=== PATIENT | female | born 1955 | race Caucasian/White ===

== ENCOUNTER 2024-08-06 14:30 | Outpatient (AMB) | payer OTHER, SELFPAY ==
--- NOTE | 2024-08-06 14:43 | MHC.PC.OV ---
Vital Signs 08/06/24 14:51 Height 5 ft 3 in Weight 168 lb 2 oz BMI 29.8 BP 140/70 H Blood Pressure Location Rt brachial Position Sitting Respiration 14 Pulse 118 H Pulse Source Pulse Oximeter Temp 98.4 F Temp Source Oral Pulse Oximetry (%) 94 Oxygen Delivery Method Room Air Intake Visit Reasons: Est. 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 Required: No Is last menstrual period known: No Post menopausal: Yes Patient : No Allergies levequin Adverse Reaction (Intermediate, Uncoded 08/06/24 14:45) Joint Pain Medication List - Last Reconciled 08/06/24 by Karen Grayson MD acyclovir 5% 1 appl topical 6XD ascorbic acid (vitamin C) 500 mg PO Q6H atorvastatin 40 mg PO DAILY calcium carbonate 500 mg PO DAILY cetirizine (Zyrtec) 10 mg PO DAILY PRN cholecalciferol (vitamin D3) (Vitamin D3) 30 mcg PO DAILY ezetimibe 10 mg PO DAILY iron-vitamin B complex tabs PO methenamine-sodium salicylate 162-162.5 mg (AZO Urinary Tract Defense) tabs PO valacyclovir 1,000 mg PO Tobacco use date assessed: 08/06/24 Fall risk assessment: No Falls in past year Last assessed Fall Risk: 08/06/24 Dental Screening Dental Screen Date: 08/06/24 Did you have a dental visit in the last 12 months?: Yes Did you have a dental problem in the last 6 months where you did not have access to dental care?: No Was dental information given to patient?: No HPI HPI Comments History of Present Illness Details The patient is a 69 year old female with a past medical history of [place] Granulomatosis, anxiety, osteopenia presenting to establish care CV: Was following with Dr Wen. Cardiac testing included Echocardiogram, holter reassuring. BP is normal-120s/70-80. No chest pain, exertional dyspnea. Was on fosamax for osteoporosis. Improved to osteopenia. She has had some loss in bone density however from DXA in 2021 and 2023. GCA: Follows every six months Reza Ortiz. Has previously been on prednisone, rituxan. In remission. Follows with labs, symptoms. See scanned history In 2019 evaluated in hospital for ?CVA. 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 Yearly mammo UTD Due for colonoscopy 2027. Last 2018 Td 2020 ROS CONSTITUTIONAL: Denies weight loss, fever and chills. HEENT: Denies changes in vision and hearing. RESPIRATORY: Denies SOB and cough. CV: Denies palpitations and CP GI: Denies abdominal pain, nausea, vomiting and diarrhea. : Denies dysuria and urinary frequency. MSK: Denies new myalgia and joint pain. SKIN: Denies rash and pruritus. NEUROLOGICAL: Denies headache PSYCHIATRIC: Denies recent changes in mood. PHYSICAL EXAM: GENERAL: Alert and oriented x 3. NAD EYES: EOMI. Anicteric. HENT: Moist mucous membranes. Thyroid full, right upper nodule LUNGS: Clear to auscultation bilaterally. CARDIOVASCULAR: Regular rate and rhythm. No murmur. No JVD. ABDOMEN: Soft, non-tender +bs EXTREMITIES: No edema. Non-tender. SKIN: No rashes or lesions. Warm. NEUROLOGIC: No focal neurological deficits. CN II-XII grossly intact PSYCHIATRIC: Cooperative. Appropriate mood and affect [facility] Medical History Sinusitis High cholesterol Orbital granulomatosis with polyangiitis (GPA) Osteopenia Anxiety Surgical History H/O hand surgery H/O section Family History Father High blood cholesterol Cardiovascular disease Mother Breast cancer Paternal Grandmother Brain cancer Social History Housing: House Patient Tobacco Use Status: Never used Tobacco e-Cigarette/Vaping Use: Never Used service: No Current occupational status: retired Current occupational exposures/hazards: No Cognitive needs: No Hearing needs: No Vision needs: Yes Questionnaire PHQ-9 Over the last 2 weeks, how often have you been bothered by any of the following problems? 1. Little interest or pleasure in doing things: not at all 2. Feeling down, depressed, or hopeless: not at all 3. Trouble falling or staying asleep, or sleeping too much: not at all 4. Feeling tired or having little energy: not at all 5. Poor appetite or overeating: not at all 6. Feeling bad about yourself - or that you are a failure or have let yourself or your family down: not at all 7. Trouble concentrating on things, such as reading the newspaper or watching television: not at all 8. Moving or speaking so slowly that other people could have noticed. Or the opposite - being so fidgety or restless that you have been moving around a lot more than usual: not at all 9. Thoughts that you would be better off or of hurting yourself in some way: not at all Total score: 0 Depression Screening Interpretation: Negative Depression Screening Done: Yes 32563 - PHQ-9 Billing: Yes Source: Developed by Drs. Shadi Taylor, Eleanor Wall, Chase Edge and colleagues, with an educational raudel from [employer]. Thrive Questionnaire Date Thrive assessed: 06/26/24 I am a: Patient What is your living situation today?: I have a steady place to live Within the past 12 months, did the food you bought not last and you didn't have the money to get more?: Never true Within the past 12 months, did you worry whether your food would run out before you got money to buy more?: Never true Do you have trouble paying for medicines?: No Do you have trouble getting transportation to medical appointments?: No Do you have trouble paying your heating and electricity bill?: No Do you have trouble taking care of your child, family member or friend?: No Do you have trouble with day-to-day activities such as bathing, preparing meals, shopping, managing finances, etc.?: No Are you currently unemployed and looking for a job?: No Are you interested in more education?: No Please select the resources that you would like help with: None Currently or been in a relationship where the following occur: No concerns reported THRIVE Score: 0 AUDIT C Alcohol Use Questionnaire (AUDIT-C) 1. How often do you have a drink containing alcohol?: 2-3 times a week 2. How many drinks containing alcohol do you have on a typical day when you are drinking?: 1 or 2 3. How often do you have six or more drinks on one occasion?: Never Total Score: 3 Score Reviewed/Action Taken: Yes MYRON-7 AMB Questionnaire MYRON-7 Date MYRON - 7 assessed: 08/06/24 Feeling nervous, anxious, or on edge: 0 = Not at all Not being able to stop or control worryin = Not at all Worrying too much about different things: 0 = Not at all Trouble relaxin = Not at all Being so restless that it is hard to sit still: 0 = Not at all Becoming easily annoyed or irritable: 0 = Not at all Feeling afraid as if something awful might happen: 0 = Not at all Total MYRON-7 score (0-4 normal; 5-9 mild; 10-14 moderate; 15-21 severe): 0 Source: Developed by Drs. Shadi Taylro, Eleanor Wall, Chase Edge and colleagues, with an educational raudel from [employer]. MYRON-7 Assessment Billing MYRON-7 Assessment Tool: MYRON-7 Assessment 47587 Physical exam (Primary Care) Vital Signs: Last Vital Signs Temp 98.4 F 08/06/24 14:51 Pulse 118 H 08/06/24 14:51 Resp 14 08/06/24 14:51 BP 140/70 H 08/06/24 14:51 Pulse Ox 94 08/06/24 14:51 Oxygen Delivery Method Room Air 08/06/24 14:51 BMI result Body Mass Index 29.8 Tobacco/Smoking Status: Tobacco use Status Tobacco use date assessed 08/06/24 08/06/24 14:58 Patient Tobacco Use Status Never used Tobacco 08/06/24 14:58 e-Cigarette/Vaping Use Never Used 08/06/24 14:58 PHQ-9: PHQ-9 Score PHQ-9: Total score 0 08/06/24 15:03 Depression Screening Interpretation: Negative Thrive Assessment: Date of Thrive Assessment Date Thrive assessed 06/26/24 08/06/24 14:58 Currently or been in a relationship where the following occur: No concerns reported Coding Level of Care Code New Pt Level 5 (89152) Diagnoses Establishing care with new doctor, encounter for Z76.89 Orbital granulomatosis with polyangiitis (GPA) M31.30 Additional Codes MYRON-7 Assessment Billing - MYRON-7 Assessment Tool: MYRON-7 Assessment 60055 ([id number]) PHQ-9 - 39814 - PHQ-9 Billing: Yes ([id number]) Time Spent (min) 70 Assessment & Plan Assessment & Plan (1) Establishing care with new doctor, encounter for: Code(s): Z76.89 - Persons encountering health services in other specified circumstances Category: Medical Plan: 69 year old female presenting to establish care. Past medical, surgical, family and social history reviewed. Medications reconciled Chart updated (2) Orbital granulomatosis with polyangiitis (GPA): Code(s): M31.30 - Cely's granulomatosis without renal involvement Category: Medical Plan: stable Orders: Orders Complete Blood Count Auto Diff 08/08/24 E78.00 - Pure hypercholesterolemia, unspecified, F41.9 - Anxiety disorder, unspecified, M31.30 - Cely's granulomatosis without renal involvement, M85.80 - Other specified disorders of bone density and structure, unspecified site, Z13.0 - Encounter for screening for diseases of the blood and blood-forming organs and certain disorders involving the immune mechanism, Z13.228 - Encounter for screening for other metabolic disorders, Z76.89 - Persons encountering health services in other specified circumstances Lipid Panel 08/08/24 E78.00 - Pure hypercholesterolemia, unspecified, F41.9 - Anxiety disorder, unspecified, M31.30 - Cely's granulomatosis without renal involvement, M85.80 - Other specified disorders of bone density and structure, unspecified site, Z13.0 - Encounter for screening for diseases of the blood and blood-forming organs and certain disorders involving the immune mechanism, Z13.228 - Encounter for screening for other metabolic disorders, Z76.89 - Persons encountering health services in other specified circumstances Hemoglobin A1c 08/08/24 E78.00 - Pure hypercholesterolemia, unspecified, F41.9 - Anxiety disorder, unspecified, M31.30 - Cely's granulomatosis without renal involvement, M85.80 - Other specified disorders of bone density and structure, unspecified site, Z13.0 - Encounter for screening for diseases of the blood and blood-forming organs and certain disorders involving the immune mechanism, Z13.228 - Encounter for screening for other metabolic disorders, Z76.89 - Persons encountering health services in other specified circumstances Comprehensive Met. Panel 08/08/24 E78.00 - Pure hypercholesterolemia, unspecified, F41.9 - Anxiety disorder, unspecified, M31.30 - Cely's granulomatosis without renal involvement, M85.80 - Other specified disorders of bone density and structure, unspecified site, Z13.0 - Encounter for screening for diseases of the blood and blood-forming organs and certain disorders involving the immune mechanism, Z13.228 - Encounter for screening for other metabolic disorders, Z76.89 - Persons encountering health services in other specified circumstances TSH reflex Free T4 08/08/24 E78.00 - Pure hypercholesterolemia, unspecified, F41.9 - Anxiety disorder, unspecified, M31.30 - Cely's granulomatosis without renal involvement, M85.80 - Other specified disorders of bone density and structure, unspecified site, Z13.0 - Encounter for screening for diseases of the blood and blood-forming organs and certain disorders involving the immune mechanism, Z13.228 - Encounter for screening for other metabolic disorders, Z76.89 - Persons encountering health services in other specified circumstances Vitamin D 25-OH (D2 and D3) 08/08/24 E78.00 - Pure hypercholesterolemia, unspecified, F41.9 - Anxiety disorder, unspecified, M31.30 - Cely's granulomatosis without renal involvement, M85.80 - Other specified disorders of bone density and structure, unspecified site, Z13.0 - Encounter for screening for diseases of the blood and blood-forming organs and certain disorders involving the immune mechanism, Z13.228 - Encounter for screening for other metabolic disorders, Z76.89 - Persons encountering health services in other specified circumstances Referrals Endocrinology Referral M81.0 - Age-related osteoporosis without current pathological fracture
[2024-08-06 14:51] VITALS: BP 140/70; PULSE 118; RESP 14; TEMP 36.9; O2SAT 94; BMI 29.8
--- OUTSIDE RECORDS SUMMARY | 2024-08-06 16:35 | XMS_ITS | Continuity of Care Document ---
Author Organization [facility] Address [address] [place] [id number] [facility] Name Relationship Address Phone DOROTHY SINHA Personal Relationship Unknown Un available ERNESTINE, CARA spouse Unknown Unavailable ERNESTINE, DOROTHY Personal Relationship Unknown Un available ERNESTINE, DOROTHY Personal Relationship Unknown Un available ERNESTINE, CARA spouse Unknown Unavailable ERNESTINE, DOROTHY Personal Relationship Unknown Un available Care Team Providers Care Weight Loss Centre Manager Name Role Phone Pranav Bryant DO Primary Care Physician Encounter [facility] Date(s): 06/12/24 - 07/12/24 [facility] [address] [place] [id number] Attending Physician: Vivi Gomez Admitting Physician: Vivi Gomez Referring Physician: Vivi Gomez Encounter Type: Triage Allergies, Adverse Reactions, Alerts Substance Criticality Severity Reaction Reaction Severity Status Levaquin bodyaches and GI upset Active Immunizations Given and Recorded Vaccine Date Status Refusal Reason FluLaval (oldterm) 1 02/17/10 Given Pneumococcal Vaccine (oldterm) 09/21/08 Given 1Admin Note: CHARTED BY HISTORY CDC INFO GIVEN TO PATIENT Medications Ascorbic Acid = 1,000 mg, By Mouth, Daily, 0 Refills, Maintenance, 01/11/20 4:55:00 PM EDT Start Date: 01/11/20 Status: Ordered Repeat number: 1 atorvastatin 40 mg oral tablet 1 tablet = 40 mg, By Mouth, Daily, # 30 tablet, 5 Refills, Maintenance, 06/07/23 1:40:00 PM EST, Tablet, Partial fill upon patient request if the prescription is for a schedule II opioid drug. Start Date: 06/07/23 Status: Ordered Quantity: 30.0 Unit: tablet Repeat number: 1 Azo cranberry 0 Refills, Maintenance, 06/07/23 1:41:00 PM EST, Partial fill upon patient request if the prescription is for a schedule II opioid drug. Start Date: 06/07/23 Status: Ordered Repeat number: 1 Calcium 500+D 2 times a day, 0 Refills, Maintenance, 06/07/23 1:41:00 PM EST, Partial fill upon patient request if the prescription is for a schedule II opioid drug. Start Date: 06/07/23 Status: Ordered Repeat number: 1 Cholecalciferol = 400 International_Units, By Mouth, Daily, 0 Refills, Maintenance, 01/11/20 4:52:00 PM EDT Start Date: 01/11/20 Status: Ordered Repeat number: 1 ezetimibe 10 mg oral tablet 1 tablet = 10 mg, By Mouth, Daily, # 30 tablet, 0 Refills, Maintenance, 06/07/23 1:40:00 PM EST, Tablet, Partial fill upon patient request if the prescription is for a schedule II opioid drug. Start Date: 06/07/23 Status: Ordered Quantity: 30.0 Unit: tablet Repeat number: 1 Misc Rx Refills 0, Maintenance, rituxamib infusion q 14 months, 06/07/23 1:41:00 PM EST, Supply Start Date: 06/07/23 Status: Ordered Repeat number: 1 Oyster Shell 500 (1250 mg calcium carbonate) oral tablet 1 tablet = 1,250 mg, By Mouth, 3 times a day, 0 Refills, Maintenance, 06/12/24 2:37:00 PM EST, Partial fill upon patient request if the prescription is for a schedule II opioid drug. Start Date: 06/12/24 Status: Ordered Repeat number: 1 Vit B Complex Tablet 1 tablet, By Mouth, Daily, 0 Refills, Maintenance, 01/11/20 4:55:00 PM EDT, Tablet Start Date: 01/11/20 Status: Ordered Repeat number: 1 ZyrTEC 10 mg oral tablet 1 tablet = 10 mg, By Mouth, Daily, 0 Refills, Maintenance, 01/11/20 4:54:00 PM EDT Start Date: 01/11/20 Status: Ordered Repeat number: 1 Problem List Condition Confirmation Course Effective Dates Status Health St atus Informant Acute bronchitis Confirmed Active Dyslipidemia Confirmed Active Paroxysmal SVT (supraventricular tachycardia) Confirmed Active Pulmonary embolism-L DVT- IVC filter removed Confirmed Active Cely's -dc imuran 09/01/2011-rituxan 05/10 Confirmed Active Social History Social History Type Response Smoking Status Never (less than 100 in lifetime) entered on: 11/20/21 Sex Sex Representation Female (finding) Patient Care team information Care Team Personnel Name: Pranav Bryant DO Position: Reference Physician Member Role: PCP Address: [address] [place] [address] Telecom: Name: Jerri Lafleur RN Position: Shahram FUENTES RN Member Role: Primary Care Nurse Care Team Related Persons Name: CARA SINHA Insurance Providers Guarantor name: DOROTHY SINHA Health Plan Information #: 1 Payer: MEDICARE PART B OUTPT Member Number: NA Policy Number: NA Group Number: NA Health Plan Information #: 2 Payer: [facility] Member Number: NA Policy Number: NA Group Number: NA
--- OUTSIDE RECORDS SUMMARY | 2024-08-06 16:35 | XMS_ITS | Clinical Summary ---
Author Organization [address] Address [address] [place] [phone] Phone Care Team Providers Care Maintenance Of Way Superintendent Name Role Phone Ary Hackett MD Primary Care Provider [phone] Allergies Active Allergy Reactions Criticality Noted Date Comments Levofloxacin 08/05/2008 Other Reaction(s): Myalgia and Joint Pain Medications methenamine-sod ium salicylate 162-162.5 mg tablet Take 2 tablets by mouth 1 (one) time each day. Active FA/niacinamide/ cupric ox/Zn ox (NICOTINAMIDE ZCF ORAL) Take 2 tablets by mouth 1 (one) time each day. Nicotinamide 500mg + resveratrol 100mg Active RITUXIMAB IV Infuse 1,000 mg into a venous catheter. Every 14 months infusion Active vitamin B complex vit C no.3 (B COMPLEX PLUS VITAMIN C ORAL) None Entered Active acyclovir (ZOVIRAX) 5 % ointment Every 3 hours while awake. 2 Active ascorbic acid (VITAMIN C) 1,000 mg tablet 1 tablet (1,000 mg total) 1 (one) time each day. AT DINNER Active atorvastatin (LIPITOR) 40 mg tablet Take 1 tablet (40 mg total) by mouth 1 (one) time each day. 4 Active calcium carbonate (OS-KAUR) 1,250 mg (500 mg elemental calcium) tablet Take 1 tablet (1,250 mg total) by mouth 1 (one) time each day. 4 Active cetirizine (ZyrTEC) 10 mg tablet Take 1 tablet (10 mg total) by mouth 1 (one) time each day. Active cholecalciferol (VITAMIN D-3) 10 mcg (400 unit) tablet Take 3 tablets (1,200 Units total) by mouth 1 (one) time each day. 4 Active ezetimibe (ZETIA) 10 mg tablet Take 1 tablet (10 mg total) by mouth 1 (one) time each day. 4 Active valACYclovir (VALTREX) 1 gram tablet Take 1 tablet (1,000 mg total) by mouth 2 (two) times a day. 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 Sinus symptoms, right wrist/hand neuopathy, optic nerve edema/hemorrhage, lung nodules, parapharyngeal mass. Treated by Dr. Haney: cytoxan, prednisone, Bactrim. Pred DC 11/06. Cytoxan changed to Imuran ? Early 2009-in remission 2011 off meds. Right lacrimal gland positive for cely's 04/04/[address] Reza Ortiz [phone] at [facility] on Rituxan Optic disc edema 07/21/2008 Overview (03/16/2024): Seen by Dr Martinez, neuroopthalmology [phone]. 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 Cat scan 07/18/08 mass Eye and ear, multiple nodular densites,calcified gramuloma RLL, limited visualization of upper abdome calcifications in liver and spleen suggesting prior granulomatous disease, cat scan chest 10/05 multiple nodules. Bx at [facility] in September 2008: Cely's Granulomatosis Allergic rhinitis 07/06/2006 Migraine without aura 07/06/2006 Overview (03/16/2024): IMO update Immunizations Name Administration Dates Next Due H1N1 Inj Preservative Free 04/10/2009 Influenza Quadravalent, MDCK , 0.5ml, preservative free (Flucelvax) 6mo and older 02/09/2021,03/03/2020,02/22/2019 Influenza trivalent, 0.5mL ( Fluad) 65yo and older 02/24/2022 Influenza trivalent, 0.5mL, preservative free (Fluarix; FluLaval; Fluzone) ages 6mo and older (Afluria) 3 years and older 02/20/2018,02/19/2017,03/12/2016,05/13,03/07/2015,03/02/2014,03/07/2013 ,02/28/2012,03/02/2011,02/12/2010,01/28,03/06/2008,05/09/2007 Influenza, Unspecified 02/01/2023,02/08/2021 MMR, measles mumps and rubel la Live (Priorix; M-M-R II) 12mo and older 02/04/2012 Pfizer (ages 12 & older) Biv alent, COVID-19 12/20/2022,03/10/2022 Pfizer SARS-CoV-2 COVID-19, mRNA, LNP-S, preservative free 03/03/2023,03/10/2022,08/27/2021,08/30,08/09/2020 Pneumococcal conjugate 13 va lent (Prevnar 13, PCV13) 2mo and older 06/30/2015 Pneumococcal conjugate 20 va lent (Prevnar 20, PCV 20) 2mo and older 12/29/2022 Pneumococcal polysaccharide 23 valent (Pneumovax 23) 2yo and older 09/21/2008 RSV, bivalent, protein subun it RSVpreF, 0.5mL, Preservative Free (Arexvy) 60yo and older 01/25/2023 Td Tetanus diptheria (Tdvax) 7yo and older 11/18/2004 Tdap Tetanus diptheria acell ular pertussis (Boostrix; Adacel) 7yo and older 01/18/2020,03/20/2010 Zoster recombinant (Shingrix ) 19yo and older 06/05/2019,02/28/2019 Surgical History Surgery Date Site/Laterality Comments SECTION PROCEDURE: HISTORICAL DELIVERY COLONOSCOPY 06/05/07 PROCEDURE: HISTORICAL COLONOSCOPY; COMMENT: rectal polyp, Dr Johnson, repeat 5 yr OTHER SURGICAL HISTORY PROCEDURE: HISTORICAL ARM SURGERY; COMMENT: left radius and ulnar fracture as a child OTHER SURGICAL HISTORY PROCEDURE: HISTORY OTHER; COMMENT: D&C OTHER SURGICAL HISTORY 09/18/08 PROCEDURE: HISTORY OTHER; COMMENT: [place] filter, thrombectomy, stent left iliofemoral vein stenosis OTHER SURGICAL HISTORY 09/30/08 PROCEDURE: HISTORY OTHER; COMMENT: Lung biopsy OTHER SURGICAL HISTORY 12/19/09 PROCEDURE: HISTORY OTHER; COMMENT: Danielle filter removed OTHER SURGICAL HISTORY 04/04/12 PROCEDURE: HISTORY OTHER; COMMENT: right lacrimal gland biopsy OTHER SURGICAL HISTORY 2012 PROCEDURE: HISTORY OTHER; COMMENT: basal cell removed from chest OTHER SURGICAL HISTORY 10/10/15 PROCEDURE: HISTORY OTHER; COMMENT: MOHS left forehead basal cell COLONOSCOPY 08/16/2017 PROCEDURE: HISTORICAL COLONOSCOPY; COMMENT: negative OTHER SURGICAL HISTORY 05/31/2018 PROCEDURE: HISTORY OTHER; COMMENT: Upper lid blepharoplasty Medical History Medical History Date Comments Migraine without aura, witho ut mention of intractable migraine without mention of status migrainosus 07/06/2006 DX:Migraine without aura , without mention of intractable migraine without mention of status migrainosus Pure hypercholesterolemia 07/06/2006 DX:Pur e hypercholesterolemia Elevated blood pressure read ing without diagnosis of hypertension 07/06/2006 DX:Elevated blood pr essure reading without diagnosis of hypertension Cely's granulomatosis 10/11/2008 DX:Wege ner's granulomatosis; COMMENT: Pos lung bx 10/05 at [facility]. Sinus symptoms, right wrist/hand neuopathy, optic nerve edema/hemorrhage, lung nodules, parapharyngeal mass. Treated by Dr. Haney: cytoxan, prednisone, Bactrim. Pred DC 11/06. Cytoxan changed to Imuran ? Early 2009-in remission 2011 off meds. Right lacrimal gland positive for cely's 04/04/[address] Reza Ortiz [phone] at [facility] G* PSVT (paroxysmal supraventri cular tachycardia) ([facility]) 01/15/2020 DX:PSVT (paroxysmal supraven tricular tachycardia) ([facility]); COMMENT: 01/11/2020, [facility] ER TGA (transient global amnesia) 02/09/2021 D X:TGA (transient global amnesia); COMMENT: 11/2019- imaging showed MARIELLA and MCA stenoses including meningioma- added Zetia Family History Medical History Relation Name Comments Heart attack Father Hyperlipidemia Father Breast cancer Mother Relation Name Status Comments Brother Alive Father Alive [place], hypercholes terolemia Maternal Grandfather Maternal Grandmother DM Mother (Age 49) breast can cer Paternal Grandfather Paternal Grandmother brain c ancer Sister 1 (Age 49) MS Sister 2 Alive Htn, Hyperchole sterolemia Social History Tobacco Use Types Packs/Day Years Used Date Smoking Tobacco: Former Cigarettes Q uit: 05/30/1983 Smokeless Tobacco: Never Alcohol Use Standard Drinks/Week Comments Yes 5 (1 standard drink = 0.6 oz pur e alcohol) Comments Unknown Sex and Gender Information Value Date Recorded Sex Assigned at Not on file Legal Sex Female 1:39 AM EST Gender Identity Not on file Sexual Orientation Not on file Obstetrics History Last Filed Vital Signs Vital Sign Reading Time Taken Comments Blood Pressure 136/80 03/27/2024 8:49 AM EDT Pulse 84 03/27/2024 8:49 AM EDT Temperature - - Respiratory Rate - - Oxygen Saturation - - Inhaled Oxygen Concentration - - Weight 75.1 kg (165 lb 8 oz) 03/27/2024 8:49 AM EDT Height 160 cm (5' 3 ) 03/27/2024 8:49 AM EDT Body Mass Index 29.32 03/27/2024 8:49 AM EDT Plan of Treatment Upcoming Encounters Date Type Department Care Team (Late st Contact Info) Description 09/25/2024 9:30 AM EDT [facility] [address] [place] [phone] Ary Hackett MD [address] [place] [address] Health Maintenance Due Date Last Done Comments Breast Cancer Screening 1955 Social Influencers of Health Screening 05/08/2022 Hypertension/CHF/CAD Annual BMP Blood Test 02/16/2024 02/15/2023 Depression Screening 03/25/2024 03/25/2023 Falls Risk Assessment 03/25/2024 03/25/2023 Medicare Annual Wellness Visit 03/25/2024 03/25/2023 Colorectal Cancer Screening: Colonoscopy 08/17/2027 08/16/2017 Cholesterol Screening (Lipid Panel) 05/19/2028 05/19/2023 DTaP,Tdap,and Td Vaccines (4 - Td or Tdap) 01/17/2030 01/18/2020, 03/20/2010, 11/18/2004 Osteoporosis Screening (Bone Density Screening) 05/04/2034 05/04/2024, 04/30/2024, 04/27/2022 MMR Vaccines Aged Out 02/04/2012 No longer eligi ble based on patient's age to complete this topic Hepatitis C Screening Completed 05/09/2014 Zoster Vaccines Completed 06/05/2019, 02/28/2019 Pneumococcal Vaccine: 50+ Years Completed 12/29/2022, 06/30/2015, 09/21/2008 RSV Immunization Patients 60+ Years Old Completed 01/25/2023 COVID-19 Vaccine Completed 02/25/2024, , 03/03/2023, Additional history exists Influenza Vaccine Completed 03/03/2024, , 02/24/2022, Additional history exists HIB Vaccines Aged Out No longer eligi ble based on patient's age to complete this topic HPV Vaccines Aged Out No longer eligi ble based on patient's age to complete this topic Hepatitis A Vaccines Aged Out No long er eligible based on patient's age to complete this topic Hepatitis B Vaccines Aged Out No long er eligible based on patient's age to complete this topic IPV Vaccines Aged Out No longer eligi ble based on patient's age to complete this topic Meningococcal ACWY Vaccine Aged Out N o longer eligible based on patient's age to complete this topic Meningococcal B Vacine Aged Out No lo nger eligible based on patient's age to complete this topic RSV Immunization Patients Under 20 months Aged Out No longer eligible based on patient's age to complete this topic Varicella Vaccines Aged Out No longer eligible based on patient's age to complete this topic Procedures Procedure Name Priority Date/Time Associated Diagnosis Comments EXTERNAL DEXA REPORT 05/04/2024 LIPID PANEL Routine 05/19/2023 DEPRESSION SCREENING Routine 03/25/2023 FALLS RISK ASSESSMENT Routine 03/25/2023 ANNUAL BMP BLOOD TEST Routine 02/15/2023 COLONOSCOPY Routine 08/16/2017 HEPATITIS C SCREENING Routine 05/09/2014 from Last 3 Months or Most Recently Relevant to Health Maintenance Results * External Dexa Report (05/04/2024) Anatomical Region Laterality Modality Bone Densitometr y Noemy Choudhury Onbase IMG DXA PROCEDURES Final Result * Lipid panel (05/19/2023) [facility] LDL/HDL Ratio 2 0 - 4 Triglycerides 98 0 - 150 mg/dL Cholesterol 180 0 - 200 mg/dL HDL 81 >=40 mg/dL LDL Cholesterol 80 0 - 100 mg/dL Blood Venous blood specimen / Unknown Result [facility] Provider LAB BLOOD ORDERABLES Ynes l Result * Falls Risk Assessment (03/25/2023) [facility] Falls Risk Assessment Abstracted Result [facility] Provider HEALTH MAINTENANCE Final Result * Depression Screening (03/25/2023) [facility] Depression Screening Abstracted Result [facility] Provider HEALTH MAINTENANCE Final Result * Annual BMP Blood Test (02/15/2023) [facility] Annual BMP Blood Test Abstracted [facility] Provider HEALTH MAINTENANCE Final Result * Colonoscopy (08/16/2017) [facility] Colonoscopy No interpretation , abstracted Anatomical Region Laterality Modality Other Result [facility] Provider HEALTH MAINTENANCE Final Result * Hepatitis C Screening (05/09/2014) [facility] Hepatitis C Screening Abstracted [facility] Provider HEALTH MAINTENANCE Final Result from Last 3 Months or Most Recently Relevant to Health Maintenance Insurance MEDICARE [employer] Care Teams Maintenance Of Way Superintendent Relationship Specialty Start Date End Date Ary Hackett MD [address] [place] [address] PCP - General 11/18/23
--- OUTSIDE RECORDS SUMMARY | 2024-08-06 16:35 | XMS_ITS | Encounter Summary ---
Author Organization [facility] Address [address] [place] [address] Care Team Providers Care Vocational Guidance Counselor Name Role Phone Unavailable Primary Care Provider Unavailabl e Encounter Details Date Type Department Care Team (Late st Contact Info) Description 10/28/2020 Erroneous Encounter [facility] CONVERSION DEPT [address] [place] [address] Provider, MD Angelica Social History Tobacco Use Types Packs/Day Years Used Date Smoking Tobacco: Never Assessed Sex and Gender Information Value Date Recorded Sex Assigned at Not on file Gender Identity Not on file Sexual Orientation Not on file documented as of this encounter Plan of Treatment Not on file documented as of this encounter Visit Diagnoses Not on filedocumented in this encounter
--- OUTSIDE RECORDS SUMMARY | 2024-08-06 16:35 | XMS_ITS | Clinical Summary ---
Author Organization [facility] Address [address] [place] [address] Care Team Providers Care Housekeeper Supervisor Name Role Phone Unavailable Primary Care Provider Unavailabl e Social History Tobacco Use Types Packs/Day Years Used Date Smoking Tobacco: Never Assessed Sex and Gender Information Value Date Recorded Sex Assigned at Not on file Gender Identity Not on file Sexual Orientation Not on file Plan of Treatment Health Maintenance Due Date Last Done Comments Hepatitis C Virus Screening 1955 DTaP/Tdap/Td Vaccines (1 - Tdap) 01/29/1976 Pneumococcal Vaccines 50+ (1 of 1 - PCV) 2007 Zoster (Shingles) Vaccine (1 of 2) 2007 COVID-19 Vaccine ( - 2023-2 5 season) 2024 RSV Vaccine 60 years and old er and Patients (1 - 1-dose 75+ series) 01/29/2032 Hepatitis B Vaccines Aged Out No long er eligible based on patient's age to complete this topic
--- OUTSIDE RECORDS SUMMARY | 2024-08-06 16:35 | XMS_ITS | Clinical Summary ---
Author Organization [facility] Address [address] [place] [phone] Care Team Providers Care Shoelace Tipping Machine Operator Name Role Phone Unavailable Primary Care Provider Unavailabl e Social History Tobacco Use Types Packs/Day Years Used Date Smoking Tobacco: Never Assessed Comments Unknown Sex and Gender Information Value Date Recorded Sex Assigned at Not on file Legal Sex Female 9:41 AM EST Gender Identity Not on file Sexual Orientation Not on file Plan of Treatment Health Maintenance Due Date Last Done Comments HIV screening 1970 Hepatitis C screening 1975 Tetanus adult (Td q 10,TDAP once) 1977 Breast cancer screening 1997 Lipid disorder screening 1997 Colon cancer screening, Colonoscopy 2002 Diabetes screening 2002 Shingles vaccine (Shingrix) (1 of 2 - Shingrix (RZV) 2 Dose Standard Series) 2007 Osteoporosis screening (bone density) 2022 Pneumococcal Vaccine (50+ ye ars) (1 of 1 - PCV) 2022 Influenza vaccine 12/29/2023 Covid-19 vaccine series ( - 2023-25 season) 2024 RSV Discussion (1 - 1-dose 7 5+ series) 01/29/2032 Cervical cancer screening Discontinued Meningococcal Vaccine Aged Out No tc julian eligible based on patient's age to complete this topic
--- OUTSIDE RECORDS SUMMARY | 2024-08-06 16:35 | XMS_ITS | Encounter Summary ---
Author Organization [facility] Address [address] [place] [address] Care Team Providers Care Reproduction Machine Loader Name Role Phone Unavailable Primary Care Provider Unavailabl e Encounter Details Date Type Department Care Team (Late st Contact Info) Description 12/26/2020 Erroneous Encounter [facility] CONVERSION DEPT [address] [place] [id number] Wisam Avendano MD [address] [place] [address] Social History Tobacco Use Types Packs/Day Years [...]
== END 2024-08-06 15:51 | disposition home or self-care (01) ==
PROVIDERS: PCP Internal Medicine; Visit Provider Internal Medicine
DX: Z76.89 Persons encountering health services in other specified circumstances (principal); M31.30 Wegener's granulomatosis without renal involvement

== ENCOUNTER → 2024-08-06 14:30 | Outpatient (BNVA) | payer MEDICARE, OTHER, SELFPAY | PROVIDERS: PCP Internal Medicine; Visit Provider Internal Medicine | DX: M31.30 Wegener's granulomatosis without renal involvement (principal); M85.80 Other specified disorders of bone density and structure, unspecified site; M81.0 Age-related osteoporosis without current pathological fracture; E78.00 Pure hypercholesterolemia, unspecified; F41.9 Anxiety disorder, unspecified; Z76.89 Persons encountering health services in other specified circumstances | CPT/HCPCS: 96127 ==

== ENCOUNTER 2024-08-08 07:56 | Outpatient (REF) | payer MEDICARE, OTHER, SELFPAY ==
--- OUTSIDE RECORDS SUMMARY | 2024-08-08 07:59 | XMS_ITS | Clinical Summary ---
Author Organization [address] Address [address] [place] [phone] Phone Care Team Providers Care Resource Manager Name Role Phone Ary Hackett MD Primary Care Provider Allergies Active Allergy Reactions Criticality Noted Date [...] % ointment Every 3 hours while awake. 08/29/19 22 Active ascorbic acid (VITAMIN C) 1,000 mg tablet 1 tablet (1,000 mg total) 1 (one) time each day. AT DINNER Active atorvastatin (LIPITOR) 40 mg tablet Take 1 tablet (40 mg total) by mouth 1 (one) time each day. 09/26/19 24 Active cetirizine (ZyrTEC) 10 mg tablet Take 1 tablet (10 mg total) by mouth 1 (one) time each day. Active ezetimibe (ZETIA) 10 mg tablet Take 1 tablet (10 mg total) by mouth 1 (one) time each day. 09/26/19 24 Active valACYclovir (VALTREX) 1 gram tablet Take 1 tablet (1,000 mg total) by mouth 2 (two) times a day. Twice daily for 1 day for cold sore 09/26/19 24 Active calcium carbonate (OS-KAUR) 1,250 mg (500 mg elemental calcium) tabletIndicatio ns:Age-related osteoporosis without current pathological fracture TAKE 1 TABLET BY MOUTH EVERY DAY 90 tablet 08/08/19 25 Active Vitamin D3 10 mcg (400 unit) tabletIndicatio ns:Vitamin D deficiency, unspecified TAKE 3 TABLETS BY MOUTH DAILY 270 tablet 08/08/19 25 Active calcium carbonate (OS-KAUR) 1,250 mg (500 mg elemental calcium) tablet Take 1 tablet (1,250 mg total) by mouth 1 (one) time each day. 08/15/19 24 2024 Discontinued cholecalciferol (VITAMIN D-3) 10 mcg (400 unit) tablet Take 3 tablets (1,200 Units total) by mouth 1 (one) time each day. 02/29/20 24 2024 Discontinued Active Problems Problem Noted Date Diagnosed Date [...] Overview (03/16/2024): Pos lung bx 10/05 at [facility]. Sinus symptoms, right wrist/hand neuopathy, optic nerve edema/hemorrhage, lung nodules, parapharyngeal mass. Treated by Dr. Haney: cytoxan, prednisone, Bactrim. Pred DC 11/06. Cytoxan changed to Imuran ? Early 2009-in remission 2011 off meds. Right lacrimal gland positive for cely's 04/04/[address] Reza Ortiz [phone] at [facility] on Rituxan Optic disc edema 07/21/2008 Overview (03/16/2024): Seen by Dr Martinez, neuroopthalmology [phone]. 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 Cat scan 07/18/08 mass Eye and ear, multiple nodular densites,calcified gramuloma RLL, limited visualization of upper abdome calcifications in liver and spleen suggesting prior granulomatous disease, cat scan chest 10/05 multiple nodules. Bx at [facility] in September 2008: Cely's Granulomatosis Allergic [...] SURGICAL HISTORY 09/18/08 PROCEDURE: HISTORY OTHER; COMMENT: Danielle filter, thrombectomy, stent left iliofemoral vein stenosis [...] granulomatosis; COMMENT: Pos lung bx 10/05 at [facility]. Sinus symptoms, right wrist/hand neuopathy, optic nerve edema/hemorrhage, lung nodules, parapharyngeal mass. Treated by Dr. Haney: cytoxan, prednisone, Bactrim. Pred DC 11/06. Cytoxan changed to Imuran ? Early 2009-in remission 2011 off meds. Right lacrimal gland positive for cely's 04/04/[address] Reza Ortiz [phone] at [facility]* PSVT (paroxysmal supraventri cular tachycardia) (CMS/HCC) 01/15/2020 DX:PSVT (paroxysmal supraven tricular tachycardia) ([facility]); COMMENT: 01/11/2020, [facility] ER TGA (transient global amnesia) 02/09/2021 D X:TGA (transient global amnesia); COMMENT: 11/2019- imaging showed MARIELLA and MCA stenoses including meningioma- added Zetia Family History Medical History Relation Name Comments Heart attack Father Hyperlipidemia Father Breast cancer Mother Relation Name Status Comments Brother Alive Father Alive [place], hypercholes terolemia Maternal Grandfather Maternal Grandmother DM [...] 9:30 AM EDT Office Visit Adult Medicine [facility] [address] [place] [phone] Ary Hackett MD [address] [place] [address] Health Maintenance Due Date Last Done Comments [...] Anatomical Region Laterality Modality Bone Densitometr y [facility] Onbase IMG DXA PROCEDURES Final Result * Lipid panel (05/19/2023) [facility] LDL/HDL Ratio 2 0 - 4 Triglycerides 98 0 - 150 mg/dL Cholesterol 180 0 - 200 mg/dL HDL 81 >=40 mg/dL LDL Cholesterol 80 0 - 100 mg/dL Blood Venous blood specimen / Unknown Result [facility] Provider LAB BLOOD ORDERABLES Ynes l Result * Falls Risk Assessment (03/25/2023) [facility] Falls Risk Assessment Abstracted Result [facility] Provider HEALTH MAINTENANCE Final Result * Depression Screening (03/25/2023) [facility] Depression Screening Abstracted Result [facility] Provider HEALTH MAINTENANCE Final Result * Annual BMP Blood Test (02/15/2023) [facility] Annual BMP Blood Test Abstracted Result [facility] Provider HEALTH MAINTENANCE Final Result * Colonoscopy (08/16/2017) [facility] Colonoscopy No interpretation , abstracted Anatomical Region Laterality Modality Other Result [facility] Noemy [place] HEALTH MAINTENANCE Final Result * Hepatitis C Screening (05/09/2014) [facility] Hepatitis C Screening Abstracted us Historical Provider HEALTH MAINTENANCE Final Result from Last 3 Months or Most Recently Relevant to Health Maintenance Insurance MEDICARE [employer] Care Teams Resource Manager Relationship Specialty Start Date End Date Ary Hackett MD [address] [place] [address] PCP - General 11/18/23
--- OUTSIDE RECORDS SUMMARY | 2024-08-08 07:59 | XMS_ITS | Encounter Summary ---
Author Organization [facility] Address [address] [place] [address] Care Team Providers Care Italian Teacher Name Role Phone Unavailable Primary Care Provider Unavailabl e Encounter Details Date Type Department Care Team (Late st Contact Info) Description 12/26/2020 Erroneous Encounter [facility] CONVERSION DEPT [address] [facility] [place] [phone] Wisam Avendano MD [address] [place] [address] Social History Tobacco Use Types Packs/Day Years [...]
--- OUTSIDE RECORDS SUMMARY | 2024-08-08 07:59 | XMS_ITS | Encounter Summary ---
Author Organization [facility] Address [address] [place] [address] Care Team Providers Care Traffic Clerk Name Role Phone Unavailable Primary Care Provider Unavailabl e Encounter Details Date Type Department Care Team (Late st Contact Info) Description 10/28/2020 Erroneous Encounter [facility] CONVERSION DEPT [address] [place] [address] Provider, MD Angelica Social History [...]
--- OUTSIDE RECORDS SUMMARY | 2024-08-08 07:59 | XMS_ITS | Clinical Summary ---
Author Organization [facility] Address [address] [place] [address] Care Team Providers Care Construction Supervisor/Carpenter Name Role Phone Unavailable Primary Care Provider [...]
[2024-08-08 11:49] LABS: MANUAL DIFF FLAG NO
[2024-08-08 11:52] LABS: Basophils Absolute Auto 0.1 X10*3/uL (0.0-0.2); Basophils Percent Auto 0.8 % (0-2); Eosinophils Absolute Auto 0.1 X10*3/uL (0.0-0.4); Eosinophils Percent Auto 1.1 % (0-4); Hematocrit 46.5 % (37.0-47.0); Hemoglobin 15.8 g/dl (12.0-16.0); Imm Gran Abs Auto 0.02 X10*3/uL (0.00-0.03); Imm Gran Pct Auto 0.3 % (0.0-0.4); Lymphocytes Absolute Auto 2.1 X10*3/uL (1.2-4.9); Lymphocytes Percent Auto 28.5 % (20-40); Mean Corpuscular Hemoglobin 30.1 pg (27.0-33.0); Mean Corpuscular Volume 88.6 fL (80.0-98.0); Mean Platelet Volume 10.2 fL (9.4-12.3); Monocytes Absolute Auto 0.6 X10*3/uL (0.1-1.2); Monocytes Percent Auto 8.5 % (2-11); Neutrophils Absolute Auto 4.5 x10*3/uL (2.0-8.3); Neutrophils Percent Auto 60.8 % (45-73); Platelet Count 252 X10*3/uL (160-400); Red Blood Count 5.25 X10*6/uL (4.20-5.50); Red Cell Distribution Width 12.6 % (11.0-16.0); White Blood Count 7.3 X10*3/uL (4.8-10.8)
[2024-08-08 12:07] LABS: Estimated Average Glucose 100 mg/dL; Hemoglobin A1C 132.5301 umol/L; Hemoglobin A1c % 5.1 % (<6.0)
[2024-08-08 12:30] LABS: Alanine Aminotransferase 35 U/L (0-31); Albumin Level 4.1 g/dL (3.5-5.0); Alkaline Phosphatase 70 U/L (39-117); Anion Gap 9 (12-20); Aspartate Amino Transferase 32 U/L (5-31); Bilirubin Total 0.6 mg/dL (0.0-1.0); Blood Urea Nitrogen 13 mg/dL (9-16); Calcium 9.4 mg/dL (8.4-10.2); Carbon Dioxide 27 mmol/L (22-29); Chloride 110 mmol/L (96-108); Cholesterol 171 mg/dL (<200); Estimated Glomerular Filt Rate > 60; Glucose Random 91 mg/dL (60-115); HDL Cholesterol 68 mg/dL (>40); LDL Cholesterol Calculated 81 mg/dL (<100); Potassium 4.3 mmol/L (3.3-5.1); Sodium 142 mmol/L (135-145); TSH reflex Free T4 0.49 uIU/mL (0.32-4.0); Total Protein 6.6 g/dL (6.5-8.0); Triglycerides 110 mg/dL (<150)
[2024-08-12 17:38] LABS: Vitamin D 25-OH, D2 <4 ng/mL; Vitamin D 25-OH, D3 37 ng/mL; Vitamin D 25-OH, Total 37 ng/mL (30-100)
== END 2024-08-08 07:57 | disposition home or self-care (01) ==
LOC: HO.WFDLDS 07:56
PROVIDERS: Visit Provider Internal Medicine
DX: F41.9 Anxiety disorder, unspecified (principal); M85.80 Other specified disorders of bone density and structure, unspecified site; M31.30 Wegener's granulomatosis without renal involvement; E78.00 Pure hypercholesterolemia, unspecified; Z76.89 Persons encountering health services in other specified circumstances; Z13.0 Encounter for screening for diseases of the blood and blood-forming organs and certain disorders involving the immune mechanism; Z13.228 Encounter for screening for other metabolic disorders; Z13.1 Encounter for screening for diabetes mellitus
CPT/HCPCS: 36415; 80053; 80061; 82306; 83036; 84443; 85025

== ENCOUNTER 2024-09-11 11:05 | Outpatient (AMB) | payer MEDICARE, OTHER, SELFPAY ==
--- NOTE | 2024-09-11 11:06 | MHC.OFFVIS ---
Vital Signs 09/11/24 11:07 Height 5 ft 3 in Weight 168 lb 13.985 oz BMI 29.9 BP 120/82 Blood Pressure Location Rt brachial Position Sitting Pulse 97 Pulse Source Pulse Oximeter Pulse Oximetry (%) 100 Oxygen Delivery Method Room Air Intake Visit Reasons: Age-related osteoporosis without current patholog Intake Note: New patient present today for Age-related Osteoporosis. Accompanied by: Self / Same As Patient Allergies levequin Adverse Reaction (Intermediate, Uncoded 08/06/24 14:45) Joint Pain HPI Comments Details: 69 YO Female is seen in consultation at the request of PCP for Osteoporosis. 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 Received treatment in the past with fosamax , from 2009 to 2015 . Tolerated treatment well without complication. No history of pathologic fracture or ONJ. Has servings of dietary calcium per day in the form of cheese, yogurt . Takes Calcium supplement 500 mg daily in divided doses. Takes [] IU of Vitamin D daily. Denies ever using PPI, anticoagulant, antiepileptic or glucocorticoid medication. Does weight bearing exercise 7 days per week in the form of walking and weight bearing . Fracture history: No Height loss: yes FAMILY LAW SPECIALIST history: Menarche at age 15- Menopause at age 52 - nl Denies history of Kidney stones: Denies family history of Osteoporosis or hip fracture. UTD on dental cleanings and sees dentist every 6 months. No planned upcoming dental work or extractions. No tabacco use or heavy ETOH use DXA dated 04/2024 : T-score of-2.3 in the lumbar spine Labs: The patient is a 69-year-old female presenting with concerns regarding bone density and possible progression to osteoporosis. She was diagnosed with Cely's Granulomatosis approximately 16 years ago and treated with high doses of prednisone, leading to the development of osteoporosis. She began using Fosamax in 2009, stopping around 2016, during which her bone density followed a concerning trend. Despite transitioning from Fosamax, recent reports indicated an almost osteoporosis-level T-score of -2.3. She undertook interventions such as daily physical activity, personal training, and dietary adjustments, while maintaining a calcium-rich diet via supplements. The patient reports no fractures, though she has lost an inch in height. Besides modest dietary challenges, she manages calcium intake with a focus on personal responsibility. 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 She also reports a prior clot correlated with vasculitis but remains off anticoagulants. The patient engages in a daily routine of walking at least 10,000 steps and has recently begun personal training, focusing on weightbearing exercises. She possesses a weighted vest, given as a gift, to further augment her workouts. COUNTS INCLUDE 234 BEDS AT THE [facility] Medical History Sinusitis High cholesterol Orbital granulomatosis with polyangiitis (GPA) Osteopenia Anxiety Surgical History H/O hand surgery H/O section Family History Father High blood cholesterol Cardiovascular disease Mother Breast cancer Paternal Grandmother Brain cancer Social History Housing: House Patient Tobacco Use Status: Never used Tobacco e-Cigarette/Vaping Use: Never Used service: No Current occupational status: retired Current occupational exposures/hazards: No Cognitive needs: No Hearing needs: No Vision needs: Yes Physical Exam There are no Cushingoid features. Absence of blue sclera. Absence of kyphosis. Thyroid gland is of nl size and weighs 15 gms. There are no thyroid nodules palpated. Lungs CTA. Heart S1 S2 Reg R/R Abdominal exam benign. Muscle strength 5/5 . Examination of spine reveals absence of tenderness on palpation Assessment & Plan Assessment & Plan (1) Osteopenia: Code(s): M85.80 - Other specified disorders of bone density and structure, unspecified site Category: Medical Plan: This is a 69-year-old white female found to have low bone mass on bone density. Partial secondary workup has been performed Plan is to complete the secondary workup by getting a phosphorus level, SPEP, urine immunofixation, 24 hour urine for calcium and creatinine as well as urine NTX . Will ensure 1200 mg of calcium and continue vitamin D3 supplementation 400 IU. 1. Osteoporosis and Osteopenia With a T-score of -2.3 in the spine, monitoring ongoing bone loss remains imperative. Performing a 24-hour urine calcium assessment, maintaining 1200 mg daily intake through improved supplement choice, and weight training are emphasized. Possible pharmacotherapy with bisphosphonates is contingent upon results indicating increased turnover. - Maintain an intake of 1200 mg calcium daily through diet and substitution with calcium citrate supplements. - Continue personal training and aim for regular weightbearing activities. - Complete a 24-hour urine calcium collection as instructed by the lab personnel. - Schedule a follow-up in four months, ensuring urine and blood tests are done at least one month ahead of the visit. - The patient had an opportunity to ask questions regarding treatment plan. The patient expressed understanding and agreement with the above treatment plan. Patient was informed and verbally consented to the use of an ambient scribe for clinic note documentation during this visit. Orders: Orders Protein Electrophoresis, Serum Today M81.0 - Age-related osteoporosis without current pathological fracture Calcium, 24 Hr Ur Today M81.0 - Age-related osteoporosis without current pathological fracture Phosphorus Today M81.0 - Age-related osteoporosis without current pathological fracture Immunofixation, Random Urine Today M81.0 - Age-related osteoporosis without current pathological fracture Creatinine, 24 Hr Group Today M81.0 - Age-related osteoporosis without current pathological fracture Collagen Crosslinks NTX Today M85.80 - Other specified disorders of bone density and structure, unspecified site Coding Level of Care Code New Pt Level 4 (18687) Diagnoses Osteopenia M85.80
[2024-09-11 11:07] VITALS: BP 120/82; PULSE 97; O2SAT 100; BMI 29.9
--- OUTSIDE RECORDS SUMMARY | 2024-09-11 13:37 | XMS_ITS | Encounter Summary ---
Author Organization [facility] Address [address] [place] [address] Care Team Providers Care Research Attorney Name Role Phone Unavailable Primary Care Provider Unavailabl e Encounter Details Date Type Department Care Team (Late st Contact Info) Description 12/26/2020 Erroneous Encounter [facility] CONVERSION DE[facility] [address] [facility] [id number] Wisam Avendano MD [address] [place] [address] Social History Tobacco Use Types Packs/Day Years [...]
--- OUTSIDE RECORDS SUMMARY | 2024-09-11 13:37 | XMS_ITS | Clinical Summary ---
Author Organization [facility] [address] [place] [address] [place] [phone] Phone Care Team Providers Care Oil Lease Broker Name Role Phone Ary Hackett MD Primary Care Provider Allergies Active Allergy Reactions Criticality Noted Date Comments Levofloxacin 08/05/2008 Other Reaction(s): Myalgia and Joint Pain Medications methenamine-sodi um salicylate 162-162.5 mg tablet Take 2 tablets by mouth 1 (one) time each day. Active FA/niacinamide/c upric ox/Zn ox (NICOTINAMIDE ZCF ORAL) Take 2 [...] 1 day for cold sore 4 Active calcium carbonate (OS-KAUR) 1,250 mg (500 mg elemental calcium) tabletIndication s:Age-related osteoporosis without current pathological fracture TAKE 1 TABLET BY MOUTH EVERY DAY 90 tablet 5 Active Vitamin D3 10 mcg (400 unit) tabletIndication s:Vitamin D deficiency, unspecified TAKE 3 TABLETS BY MOUTH DAILY 270 tablet 5 Active Active Problems Problem Noted Date Diagnosed Date Basal cell carcinoma (BCC) 02/09/2021 Essential hypertension 06/18/2020 Meningioma ([facility] V24, [facility] V28) 04/15/2020 Overview (03/16/2024): 7 mm, occipital, CT [...] 06/16/09, 35 on 01/04/11 Granulomatosis with polyangiitis (CMS/HCC V24, C MS/HCC V28) 10/11/2008 Overview (03/16/2024): Pos lung bx 10/05 at [facility]. Sinus symptoms, right wrist/hand neuopathy, optic nerve edema/hemorrhage, lung nodules, parapharyngeal mass. Treated by Dr. Haney: cytoxan, prednisone, Bactrim. Pred DC 11/06. Cytoxan changed to Imuran ? Early 2009-in remission 2011 off meds. Right lacrimal gland positive for cely's 04/04/[address] Reza Ortiz [phone] at [facility] on Rituxan Optic disc edema 07/21/2008 Overview (03/16/2024): Seen by Dr Martinez, neuroopthalmology [phone]. 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 Cat scan 07/18/08 mass Eye and ear, multiple nodular densites,calcified gramuloma RLL, limited visualization of upper abdome calcifications in liver and spleen suggesting prior granulomatous disease, cat scan chest 10/05 multiple nodules. Bx at [facility] in September 2008: Cely's Granulomatosis Allergic rhinitis [...] SURGICAL HISTORY 09/18/08 PROCEDURE: HISTORY OTHER; COMMENT: [place] filter, thrombectomy, stent left iliofemoral vein stenosis [...] granulomatosis; COMMENT: Pos lung bx 10/05 at [facility]. Sinus symptoms, right wrist/hand neuopathy, optic nerve edema/hemorrhage, lung nodules, parapharyngeal mass. Treated by Dr. Haney: cytoxan, prednisone, Bactrim. Pred DC 11/06. Cytoxan changed to Imuran ? Early 2009-in remission 2011 off meds. Right lacrimal gland positive for cely's 04/04/[address] Reza Ortiz [phone] at [facility] G* PSVT (paroxysmal supraventri cular tachycardia) (CMS/HCC V24) 01/15/2020 DX:PSVT (paroxysmal suprave ntricular tachycardia) ([facility]); COMMENT: 01/11/2020, [facility] ER TGA (transient global amnesia) 02/09/2021 D X:TGA (transient global amnesia); COMMENT: 11/2019- imaging showed MARIELLA and MCA stenoses including meningioma- added Zetia Family History Medical History Relation Name Comments Heart attack Father Hyperlipidemia Father Breast cancer Mother Relation Name Status Comments Brother Alive Father Alive ID, hypercholes terolemia Maternal Grandfather Maternal Grandmother DM [...] 9:30 AM EDT Office Visit Adult Medicine [facility] [address] [place] [phone] Ary Hackett MD [address] [place] [address] Health Maintenance Due Date Last Done Comments Breast Cancer Screening 1955 Social Influencers of Health Screening 05/08/2022 Hypertension/CHF/CAD Annual BMP Blood Test 02/16/2024 02/15/2023 Depression Screening 03/25/2024 03/25/2023 Falls Risk Assessment 03/25/2024 03/25/2023 Medicare Annual Wellness Visit 03/25/2024 03/25/2023 COVID-19 Vaccine (10 - Pfizer risk season) 2024 02/25/2024, 02/22/2024, 03/03/2023, Additional history exists Colorectal Cancer Screening: Colonoscopy 08/17/2027 08/16/2017 Cholesterol Screening (Lipid Panel) 05/19/2028 05/19/2023 DTaP,Tdap,and Td Vaccines (4 - Td or Tdap) 01/17/2030 01/18/2020, 03/20/2010, 11/18/2004 Osteoporosis Screening (Bone Density Screening) 05/04/2034 05/04/2024, 04/30/2024, 04/27/2022 Hepatitis C Screening Completed 05/09/2014 Zoster Vaccines Completed 06/05/2019, 02/28/2019 Pneumococcal Vaccine: 50+ Years Completed 12/29/2022, 06/30/2015, 09/21/2008 RSV Immunization Adult Patients Completed 01/25/2023 Influenza Vaccine Completed 03/03/2024, , 02/24/2022, Additional history exists MMR Vaccines Aged Out 08/30/2024, 02/04/2012 No lo nger eligible based on patient's age to complete this topic HIB Vaccines Aged Out No longer eligi [...] age to complete this topic Meningococcal B Vaccine Aged Out No l onger eligible based on patient's age to complete [...] Anatomical Region Laterality Modality Bone Densitometr y Provider Macey Onbase IMG DXA PROCEDURES Final Result * Lipid panel (05/19/2023) [facility] LDL/HDL Ratio 2 0 - 4 Triglycerides 98 0 - 150 mg/dL Cholesterol 180 0 - 200 mg/dL HDL 81 >=40 mg/dL LDL Cholesterol 80 0 - 100 mg/dL Blood Venous blood specimen / Unknown Result [facility] Provider LAB BLOOD ORDERABLES Ynes l Result * Falls Risk Assessment (03/25/2023) [facility] Falls Risk Assessment Abstracted Result [facility] Provider HEALTH MAINTENANCE Final Result * Depression Screening (03/25/2023) [facility] Depression Screening Abstracted Result [facility] Provider HEALTH MAINTENANCE Final Result * Annual BMP Blood Test (02/15/2023) [facility] Annual BMP Blood Test Abstracted Result [facility] Provider HEALTH MAINTENANCE Final Result * Colonoscopy (08/16/2017) [facility] Colonoscopy No interpretation , abstracted Anatomical Region Laterality Modality Other Result [facility] Provider HEALTH MAINTENANCE Final Result * Hepatitis C Screening (05/09/2014) [facility] Hepatitis C Screening Abstracted [facility] Provider HEALTH MAINTENANCE Final Result from Last 3 Months or Most Recently Relevant to Health Maintenance Insurance MEDICARE [employer] Care Teams Oil Lease Broker Relationship Specialty Start Date End Date Ary Hackett MD [address] [place] [address] PCP - General 11/18/23
--- OUTSIDE RECORDS SUMMARY | 2024-09-11 13:37 | XMS_ITS | Encounter Summary ---
Author Organization [facility] Address [address] [place] [address] Care Team Providers Care Benefits Administrator Name Role Phone Unavailable Primary Care Provider Unavailabl e Encounter Details Date Type Department Care Team (Late st Contact Info) Description 10/28/2020 Erroneous Encounter [facility] CONVERSION DEPT [address] [place] [phone] Provider, MD Angelica Social History [...]
--- OUTSIDE RECORDS SUMMARY | 2024-09-11 13:37 | XMS_ITS | Clinical Summary ---
Author Organization [facility] Address [address] [place] [address] Care Team Providers Care Mail Room Name Role Phone Unavailable Primary Care Provider [...]
--- OUTSIDE RECORDS SUMMARY | 2024-09-11 13:37 | XMS_ITS | Clinical Summary ---
Author Organization [facility] Address [address] [place] [phone] Care Team Providers Care Parachute Crown Sewer Name Role Phone Unavailable Primary Care Provider [...] cancer screening, Colonoscopy 2002 Diabetes screening 2002 Pneumococcal Vaccine (50+ ye ars) (1 of 1 - PCV) 2007 Shingles vaccine (Shingrix) (1 of 2 - Shingrix (RZV) 2 Dose Standard Series) 2007 Osteoporosis screening (bone density) 2022 Covid-19 vaccine series (1 - 2023-25 season) 2024 Influenza vaccine 2025 RSV Immunization (1 - 1-dose 75+ series) 01/29/2032 Cervical cancer screening Discontinued Meningococcal Vaccine Aged Out No tc julian eligible based on patient's age to complete this topic
== END 2024-09-11 11:52 | disposition home or self-care (01) ==
LOC: HO.ENCR 11:05
PROVIDERS: PCP Internal Medicine; Visit Provider Internal Medicine Endocrinology, Diabetes & Metabolism
DX: M85.80 Other specified disorders of bone density and structure, unspecified site (principal)
CPT/HCPCS: 99204

== ENCOUNTER → 2024-09-11 11:05 | Outpatient (BNVA) | payer MEDICARE, OTHER, SELFPAY | PROVIDERS: PCP Internal Medicine; Visit Provider Internal Medicine Endocrinology, Diabetes & Metabolism | DX: M81.0 Age-related osteoporosis without current pathological fracture (principal); M85.80 Other specified disorders of bone density and structure, unspecified site | CPT/HCPCS: 99202 ==

== ENCOUNTER 2024-12-18 13:10 | Outpatient (REF) | payer MEDICARE, OTHER, SELFPAY ==
--- OUTSIDE RECORDS SUMMARY | 2024-12-18 14:14 | XMS_ITS | Clinical Summary ---
Author Organization [facility] Address [address] [place] [address] Care Team Providers Care Corporate Auditor Name Role Phone Unavailable Primary Care Provider Unavailabl e Social History Tobacco Use Types Packs/Day Years Used Date Smoking Tobacco: Never Assessed Comments Unknown Sex and Gender Information Value Date Recorded Sex Assigned at Not on file Legal Sex Female 1:16 PM EDT Gender Identity Not on file Sexual Orientation [...]
--- OUTSIDE RECORDS SUMMARY | 2024-12-18 14:14 | XMS_ITS | Clinical Summary ---
Author Organization [facility] Address [facility] [address] [address] Phone Care Team Providers Care Recycling Director Name Role Phone Valeria Ortiz MD Unavailable Sam Story MD Unavailable [phone] Austin Puga MD Unavailable [email or web address] Karen Grayson MD Primary Care Provider [phone] Allergies Active Allergy Reactions Criticality Noted Date Comments Levofloxacin Myalgia Medium 04/24/2012 Medications atorvastatin (LIPITOR) 10 MG tablet Take 10 mg by mouth nightly. 5 Active riTUXimab (RITUXAN) 10 mg/mL injection Inject 1,000 mg into the vein every 6 (six) months. 2 Active b complex vitamins capsule Take 1 capsule by mouth daily. 1 Active ascorbic acid (VITAMIN C) 500 MG tablet VITAMIN C (ASCORBIC ACID) 500 MG TABLET; Dose: 500 MG; Form: Take 1 TABLET; Route: PO; Frequency: BID; Directions: Not available; Details: Dispense: Tablet(s); Taking; Status: Active; Source: VALERIA ORTIZ M.D.; Date: 12/24/2010 1 Active cetirizine (ZYRTEC) 10 MG tablet ZYRTEC (CETIRIZINE) 10 MG TABLET; Dose: 10 MG; Form: Take 1 TABLET; Route: PO; Frequency: QD; Directions: Not available; Details: Dispense: Tablet(s); Taking; Status: Active; Source: VALERIA ORTIZ M.D.; Date: 05/11/2013 3 Active b complex vitamins tablet Dose: 1 TAB; Form: Not available; Route: PO; Frequency: QD; Directions: Not available; Details: Not available; Date: 12/24/2010 1 Active custom medication, see admin inst / label comment, patul end nasal drops, Dose: Not available; Form: Not available; Route: PO; Frequency: Not available; Directions: As directed, daily prn; Details: Not available; Date: 05/13/2015 5 Active cholecalciferol (VITAMIN D3) 2,000 unit tablet Take 1 tablet by mouth daily. 5 Active valACYclovir (VALTREX) 1000 MG tabletIndicatio ns:Herpes simplex Take 1 tablet (1,000 mg total) by mouth 2 (two) times a day as needed. 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 Deep vein thrombosis 06/09/2012 Overview (07/20/2014): Deep venous thrombosis; 08/2008 Osteoporosis 05/10/2012 Overview (07/20/2014): Osteoporosis Granulomatosis with polyangiitis 04/24/2012 Overview (07/20/2014): Cely's granulomatosis Encounters Date Type Department Care Team Description 12/17/2024 1:24 PM EDT - 12/17/2024 11:59 PM EDT Hospital Encounter [facility] [address] [place] [address] Sam Story MD Discharge Disposition: Home or Self Care from Last 3 Months Immunizations Immunization Administration Dates Next Due COVID-19 (Pre-03/21) Pfizer Vaccine, mRNA, PF COVID-19 (Pre-03/21) Pfizer Vaccine, mRNA, natalie-sucrose, PF 10/07/2021 Influenza, Unspecified Formulation 05/13/2015, Social History Tobacco Use Types Packs/Day Years Used Date Smoking Tobacco: Former Smokeless Tobacco: Never Alcohol Use Standard Drinks/Week Comments Not Asked 0 (1 standard drink = 0.6 oz pur e alcohol) Education Answer Date Recorded Are you interested in more education? Not on alba e 09/23/2022 Are you concerned about learning? Not on file 09/23/2022 No 09/23/2022 No 09/23/2022 Digital Access Answer Date Recorded No 10/25/2022 No 10/25/2022 No 10/25/2022 Reliable internet access at home? Not on file 10/25/2022 Device with a working camera? Not on file Comments No Sex and Gender Information Value Date Recorded Sex Assigned at Female 05/11/2022 3:20 PM EST Legal Sex Female 7:57 PM EST Gender Identity Female 05/11/2022 3:20 PM EST Sexual Orientation Straight 05/11/2022 3: 20 PM EST Last Filed Vital Signs Vital Sign Reading Time Taken Comments Blood Pressure 136/86 08/23/2024 1:19 PM EDT Pulse 100 08/23/2024 1:19 PM EDT Temperature 36.1 C (97 F) 08/23/2024 1:19 PM EDT Respiratory Rate 18 10/16/2019 7:00 AM EDT Oxygen Saturation 95% 08/23/2024 1:19 PM EDT Inhaled Oxygen Concentration - - Weight 74.6 kg (164 lb 6.4 oz) 08/23/2024 1:19 P M EDT Height 160 cm (5' 3 ) 08/23/2024 1:19 PM EDT Body Mass Index 29.12 08/23/2024 1:19 PM EDT Plan of Treatment Upcoming Encounters Date Type Department Care Team (Late st Contact Info) Description 04/15/2025 10:30 AM EST [facility] [address] [place] [phone] Sam Story MD [address] [place] [phone] [email or web address] Health Maintenance Due Date Last Done Comments DEPRESSION SCREENING 1969 SMOKING Hx and SMOKELESS TOBACCO SCREENING 1970 MAMMOGRAM 1997 COLOGUARD 2002 COLONOSCOPY 2002 COLORECTAL CANCER SCREENING 2002 FIT TEST 2002 FOBT 2002 SIGMOIDOSCOPY 2002 VIRTUAL COLONOSCOPY 2002 OSTEOPOROSIS SCREENING INITIAL (ONE-TIME) 2022 COVID-19 VACCINE (10 - Pfizer risk 2023- season) 2024 02/22/2024, 02/22/2024, 03/03/2023, Additional history exists SCREENING FOR DIABETES 08/24/2027 08/23/2024 LIPID PANEL 05/19/2028 05/19/2023, 11/27, 10/07/2020, Additional history exists Adult Td,Tdap Booster 01/17/2030 01/18/2020 , 03/20/2010, 11/18/2004 ZOSTER VACCINES Completed 06/05/2019, 02/28/2019 PNEUMOCOCCAL VACCINES (50+ years) Completed 12/29/2022, 06/30/2015, 09/21/2008 RSV VACCINE Completed 01/25/2023 HEPATITIS C SCREENING Completed 02/15/2023, 012 HEPATITIS A VACCINES Aged Out No long er eligible based on patient's age to complete this topic HIB VACCINES Aged Out No longer eligi ble based on patient's age to complete this topic MENINGOCOCCAL VACCINES (ACWY) Aged Out No longer eligible based on patient's age to complete this topic MENINGOCOCCAL VACCINES (B) Aged Out N o longer eligible based on patient's age to complete this topic Medical Devices Not on file Procedures Procedure Name Priority Date/Time Associated Diagnosis Comments HEPATITIS C ANTIBODY, QUALITATIVE Routine 02/15/2023 8:02 AM EDT Granulomatosis with polyangiitis LIPID PANEL Routine 12/15/2021 8:57 AM EDT Granulomatosis with polyangiitis from Last 3 Months or Most Recently Relevant to Health Maintenance Results * Hepatitis C antibody, qualitative (02/15/2023 8:02 AM EDT) HCV ANTIBODY Negative Negative [facility] Comment:Antibodies to HCV no t detected. Does not exclude the possibility of exposure to HCV. Blood 02/15/2023 8:02 AM EDT 02/15/2023 12:19 PM EDT Sam Story MD LAB BLOOD ORDERABLES Final Result Performing Organization Address [facility] Co de Phone Number [address] [address] * Lipid panel (12/15/2021 8:57 AM EDT) HDL 76 35 - 100 mg/dL [facility] CHOLESTEROL 193 <200 mg/dL [facility] TRIGLYCERIDES 119 40 - 150 mg/dL [facility] LDL 93 50 - 129 mg/dL [facility] CARDIAC RISK RATIO 2.5 0.0 - 5.0 [facility] NON-HDL CHOLESTEROL 117 mg/dL [facility] Comment:NCEP ATP III guideli mely suggest a non-HDL cholesterol goal 30 mg/dl higher than the patient-specific LDL goal. Blood 12/15/2021 8:57 AM EDT 12/15/2021 1:48 PM EDT Austin Puga MD LAB BLOOD ORDERABLES Final Resul t Performing Organization Address City/[facility] Co de Phone Number [address] [address] from Last 3 Months or Most Recently Relevant to Health Maintenance Insurance MEDICARE PART A & B [employer] MEDICARE SUPPLEMENT MEDICARE PART A & B [employer] MEDICARE SUPPLEMENT [facility] MEDICARE SUPPLEMENT [facility] MEDICARE SUPPLEMENT MEDICARE PART A & B Member Subscriber Plan / Payer ( fective 2021-) Name:Genesis Finch Member ID:[id number] Relation to Subscriber:Self Name:Genesis Finch Subscriber ID:[id number] Payer ID:[id number] Group ID:Not on file Type:Medicare Address: [facility] [employer] [address] [place] [phone] [place] [address] MEDICARE SUPPLEMENT MEDICARE PART A & B [facility] EXTENSION MEDICARE SUPPLEMENT MEDICARE PART A & B [facility] [employer] MEDICARE SUPPLEMENT [employer] MEDICARE SUPPLEMENT MEDICARE PART A & B [facility] [employer] MEDICARE SUPPLEMENT Care Teams Recycling Director Relationship Specialty Start Date End Date Karen Grayson MD [address] [place] [phone] PCP - General Internal Medicine 08/23/24 Valeria Ortiz MD [address] [place] [phone] [email or web address] Nephrology 11/10/21 Sam Story MD [address] [place] [phone] [email or web address] 11/10/21 Austin Puga MD [address] [place] [phone] [email or web address] 11/10/21 Additional Source Comments The information contained in this document represents components of the legal health record. It is not the complete legal health record.[facility]
--- OUTSIDE RECORDS SUMMARY | 2024-12-18 14:14 | XMS_ITS | Clinical Summary ---
Author Organization [facility] Address [address] [place] [phone] Care Team Providers Care Ballistics Expert Name Role Phone Unavailable Primary Care Provider [...]
[2024-12-20 17:38] LABS: Prot Elec - Albumin 4.0 g/dL (3.8-4.8); Prot Elec - Alpha1 0.3 g/dL (0.2-0.3); Prot Elec - Alpha2 0.7 g/dL (0.5-0.9); Prot Elec - Beta 1 0.4 g/dL (0.4-0.6); Prot Elec - Beta 2 0.4 g/dL (0.2-0.5); Prot Elec - Gamma 0.4 g/dL (0.8-1.7); Prot Elec - Total Protein 6.1 g/dL (6.1-8.1)
== END 2024-12-18 13:11 | disposition home or self-care (01) ==
LOC: HO.WFDLDS 13:10
PROVIDERS: Visit Provider Internal Medicine Endocrinology, Diabetes & Metabolism
DX: Z01.84 Encounter for antibody response examination (principal); M81.0 Age-related osteoporosis without current pathological fracture; M85.80 Other specified disorders of bone density and structure, unspecified site
CPT/HCPCS: 36415; 84100; 84165

== ENCOUNTER 2024-12-25 17:54 | Outpatient (REF) | payer MEDICARE, OTHER, SELFPAY ==
--- OUTSIDE RECORDS SUMMARY | 2024-12-25 17:56 | XMS_ITS | Clinical Summary ---
Author Organization [facility] Address [facility] [employer] [facility] [address] [place] [phone] Phone Care Team Providers Care Machine Strap Buckler Name Role Phone Valeria Ortiz MD Unavailable Sam Story MD Unavailable [phone] Austin Puga MD Unavailable [email or web address] Karen Vergara MD Primary Care Provider Allergies Active Allergy [...] PM EDT Hospital Encounter [facility] [address] [place] [address] Sam Story MD Discharge Disposition: Home or [...] EST Office Visit [facility] [address] [place] [phone] Sam Story MD [address] [place] [phone] [email or web address] [email or web address] [place] Health Maintenance Due Date Last Done Comments [...] Procedure Name Priority Date/Time Associated Diagnosis Comments ANTI-NEUTROPHIL CYTOPLASMIC ANTIBODY (ANCA) Routine 12/17/2024 1:34 PM EDT 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 MEASLES ANTIBODY, IGG Routine 12/17/2024 1:34 PM EDT 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 HEPATITIS C ANTIBODY, QUALITATIVE Routine 02/15/2023 8:02 AM EDT Granulomatosis with polyangiitis LIPID PANEL Routine 12/15/2021 8:57 AM EDT Granulomatosis with polyangiitis from Last 3 Months or Most Recently Relevant to Health Maintenance Results * (ABNORMAL) Measles antibody, IgG (12/17/2024 1:34 PM EDT) RUBEOLA IGG Negative(A ) Positive [facility] Blood (Blood) 12/17/2024 1:3 4 PM EDT 12/17/2024 1:41 PM EDT us Sam Story MD NON CULTURE MICROBIOLOGY Fi nal Result [facility] [address] [place], [place] [id number] * Anti-Neutrophil Cytoplasmic Antibody (ANCA) (12/17/2024 1:34 PM EDT) C-ANCA Negative Negative [facility] P-ANCA Negative Negative [facility] Comment: (NOTE) Negative for cANCA and pANCA patterns by immunofluorescence. ADDITIONAL INFORMATION This test was developed and its performance characteristics determined by [facility] in a manner consistent with CLIA requirements. This test has not been cleared or approved by the U.S. Food and Drug Administration. Blood 12/17/2024 1:34 PM EDT 12/17/2024 1:41 PM EDT Sam Story MD LAB BLOOD ORDERABLES Final Result [facility] [id number] [place] [address] * Hepatitis C antibody, qualitative (02/15/2023 8:02 AM EDT) HCV ANTIBODY Negative Negative [facility] Comment:Antibodies to HCV no t detected. Does not exclude the possibility of exposure to HCV. Blood 02/15/2023 8:02 AM EDT 02/15/2023 12:19 PM EDT Sam Story MD LAB BLOOD ORDERABLES Final Result Performing Organization Address [facility] Co de Phone Number [address] [phone] * Lipid panel (12/15/2021 8:57 AM EDT) HDL 76 35 - 100 mg/dL [facility] CHOLESTEROL 193 <200 mg/dL [facility] TRIGLYCERIDES 119 40 - 150 mg/dL [facility] LDL 93 50 - 129 mg/dL [facility] CARDIAC RISK RATIO 2.5 0.0 - 5.0 [facility] NON-HDL CHOLESTEROL 117 mg/dL [facility] Comment:NCEP ATP III guideli mely suggest a non-HDL cholesterol goal 30 mg/dl higher than the patient-specific LDL goal. Blood 12/15/2021 8:57 AM EDT 12/15/2021 1:48 PM EDT Austin Puga MD LAB BLOOD ORDERABLES Final Resul t Performing Organization Address [facility] Co de Phone Number [address] [address] from Last 3 Months or Most Recently Relevant to Health Maintenance Insurance MEDICARE PART A & B [facility] MEDICARE SUPPLEMENT MEDICARE PART A & B [facility] [employer] MEDICARE SUPPLEMENT [facility] MEDICARE [facility]PPLEMENT [facility] MEDICARE SUPPLEMENT MEDICARE PART A & B [facility] [employer] MEDICARE SUPPLEMENT MEDICARE PART A & B [facility] [employer] MEDICARE SUPPLEMENT MEDICARE PART A & B [facility] [employer] MEDICARE SUPPLEMENT [facility] MEDICARE SUPPLEMENT MEDICARE PART A & B [facility] [employer] MEDICARE SUPPLEMENT Care Teams Machine Strap Buckler Relationship Specialty Start Date End Date Karen Vergara MD [address] [place] [phone] PCP - General Internal Medicine 08/23/24 Valeria Ortiz MD [address] [place] [phone] [email or web address] 11/10/21 Sam Story MD [address] [place] [phone] [email or web address] 11/10/21 Austin Puga MD [address] [place] [phone] [email or web address] [email or web address] Nephrology 11/10/21 Additional Source Comments The information contained in this document represents components of the legal health record. It is not the complete legal health record.[facility]
--- OUTSIDE RECORDS SUMMARY | 2024-12-25 17:56 | XMS_ITS | Clinical Summary ---
Author Organization [facility] Address [address] [place] [phone] Care Team Providers Care Custom Home Installer Name Role Phone Unavailable Primary Care Provider [...]
--- OUTSIDE RECORDS SUMMARY | 2024-12-25 17:56 | XMS_ITS | Clinical Summary ---
Author Organization [facility] Address [address] [place] [address] Care Team Providers Care Computer Systems Information Director Name Role Phone Unavailable Primary Care Provider [...]
[2024-12-25 18:40] LABS: Creatinine, mg/dL 85.73
[2024-12-25 18:58] LABS: Total Volume 24 Hour Urine 1250 mL
[2024-12-26 16:39] LABS: Calcium/Creatinine Ratio 236 mg/g creat (30-275); Creatinine 24Hr Urine 1.10 g/24 h (0.50-2.15)
[2025-01-01 07:28] LABS: NTXCreaRU 87 mg/dL (20-275)
== END 2024-12-25 17:55 | disposition home or self-care (01) ==
LOC: HO.LNP 17:54
PROVIDERS: Visit Provider Internal Medicine Endocrinology, Diabetes & Metabolism
DX: M81.0 Age-related osteoporosis without current pathological fracture (principal); M85.80 Other specified disorders of bone density and structure, unspecified site
CPT/HCPCS: 82340; 82523; 82570; 86335

== ENCOUNTER 2025-01-08 10:14 | Outpatient (AMB) | payer MEDICARE, OTHER, SELFPAY ==
--- NOTE | 2025-01-08 10:17 | MHC.OFFVIS ---
Vital Signs 01/08/25 10:19 Height 5 ft 3 in Weight 168 lb 10.458 oz BMI 29.9 BP 128/74 Blood Pressure Location Rt brachial Position Sitting Pulse 89 Pulse Source Pulse Oximeter Pulse Oximetry (%) 98 Oxygen Delivery Method Room Air Intake Visit Reasons: f/u osteopenia Intake Note: Patient present today for Osteopenia follow up. Simulation Developer Required: No Accompanied by: Self / Same As Patient Allergies levequin Adverse Reaction (Intermediate, Uncoded 01/08/25 10:21) Joint Pain HPI Comments Details: 69 YO Female is seen in consultation at the request of PCP for Osteoporosis. 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 Received treatment in the past with fosamax , from 2009 to 2015 . Tolerated treatment well without complication. No history of pathologic fracture or ONJ. Has servings of dietary calcium per day in the form of cheese, yogurt . Takes Calcium supplement 500 mg daily in divided doses. Takes [] IU of Vitamin D daily. Denies ever using PPI, anticoagulant, antiepileptic or glucocorticoid medication. Does weight bearing exercise 7 days per week in the form of walking and weight bearing . 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 UTD on dental cleanings and sees dentist every 6 months. No planned upcoming dental work or extractions. No tabacco use or heavy ETOH use DXA dated 04/2024 : T-score of-2.3 in the lumbar spine Labs: The patient is a 69-year-old female presenting with concerns regarding bone density and possible progression to osteoporosis. She was diagnosed with Cely's Granulomatosis approximately 16 years ago and treated with high doses of prednisone, leading to the development of osteoporosis. She began using Fosamax in 2009, stopping around 2016, during which her bone density followed a concerning trend. Despite transitioning from Fosamax, recent reports indicated an almost osteoporosis-level T-score of -2.3. She undertook interventions such as daily physical activity, personal training, and dietary adjustments, while maintaining a calcium-rich diet via supplements. The patient reports no fractures, though she has lost an inch in height. Besides modest dietary challenges, she manages calcium intake with a focus on personal responsibility. 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 She also reports a prior clot correlated with vasculitis but remains off anticoagulants. The patient engages in a daily routine of walking at least 10,000 steps and has recently begun personal training, focusing on weightbearing exercises. She possesses a weighted vest, given as a gift, to further augment her workouts. Secondary workup was negative and urine NTX was suppressed [facility] Medical History Sinusitis High cholesterol Orbital granulomatosis with polyangiitis (GPA) Osteopenia Anxiety Surgical History H/O hand surgery H/O section Family History Father High blood cholesterol Cardiovascular disease Mother Breast cancer Paternal Grandmother Brain cancer Social History Housing: House Patient Tobacco Use Status: Never used Tobacco e-Cigarette/Vaping Use: Never Used service: No Current occupational status: retired Current occupational exposures/hazards: No Cognitive needs: No Hearing needs: No Vision needs: Yes Physical Exam Vital Signs: Last Vital Signs Pulse 89 01/08/25 10:19 BP 128/74 01/08/25 10:19 Pulse Ox 98 01/08/25 10:19 Oxygen Delivery Method Room Air 01/08/25 10:19 BMI result Body Mass Index 29.9 Assessment & Plan Assessment & Plan (1) Osteopenia: Code(s): M85.80 - Other specified disorders of bone density and structure, unspecified site Category: Medical Plan: This is a 69-year-old white female found to have low bone mass on bone density. Secondary workup was negative Plan is to . Will ensure 1200 mg of calcium and continue vitamin D3 supplementation 400 IU. Would hold off on pharmacologic therapy . At this point, we will have patient follow up with primary care provider who can recheck a DEXA bone density in about 18 months. If there is further progression osteoporosis, the patient returned back to endocrinology for discussion of treatment options including reinitiation of bisphosphonate or Prolia Orders: Orders XR DEXA axial skeleton 4 Months M85.80 - Other specified disorders of bone density and structure, unspecified site Coding Level of Care Code Est Pt Level 3 (08961) Diagnoses Osteopenia M85.80
[2025-01-08 10:19] VITALS: BP 128/74; PULSE 89; O2SAT 98; BMI 29.9
--- OUTSIDE RECORDS SUMMARY | 2025-01-08 11:15 | XMS_ITS | Clinical Summary ---
Author Organization [facility] Address [address] [place] [address] Care Team Providers Care Mounting Machine Operator Name Role Phone Unavailable Primary [...]
--- OUTSIDE RECORDS SUMMARY | 2025-01-08 11:15 | XMS_ITS | Clinical Summary ---
Author Organization [facility] Address [facility] [address] [place] [address] Phone Care Team Providers Care See Wheeler Name Role Phone Valeria Ortiz MD Unavailable Sam Story MD Unavailable [phone] Austin Puga MD Unavailable [email or web address] Karen Vergara MD Primary Care Provider [phone] Allergies Active Allergy Reactions Criticality Noted Date [...] PM EDT Hospital Encounter [facility] [address] [place] [address] Sam Story MD Discharge Disposition: Home or [...] EST Office Visit [facility] [address] [place] [phone] Sam Story MD [address] [place] [phone] [email or web address] Health Maintenance Due Date Last [...] PM EDT) RUBEOLA IGG Negative(A ) Positive [facility] Blood (Blood) 12/17/2024 1:3 4 PM EDT 12/17/2024 1:41 PM EDT us Sam Story MD NON CULTURE MICROBIOLOGY Fi nal Result [facility] [address] [place], [place] [phone] * Anti-Neutrophil Cytoplasmic Antibody (ANCA) (12/17/2024 1:34 PM EDT) C-ANCA Negative Negative [facility] P-ANCA Negative Negative [facility] Comment: (NOTE) Negative for cANCA and pANCA patterns by immunofluorescence. ADDITIONAL INFORMATION This test was developed and its performance characteristics determined by [facility] in a manner consistent with CLIA requirements. This test has not been cleared or approved by the U.S. Food and Drug Administration. Blood 12/17/2024 1:34 PM EDT 12/17/2024 1:41 PM EDT Sam Story MD LAB BLOOD ORDERABLES Final Result [facility] [address] [place] [address] * Hepatitis C antibody, qualitative (02/15/2023 8:02 AM EDT) HCV ANTIBODY Negative Negative [facility] Comment:Antibodies to HCV no t detected. Does not exclude the possibility of exposure to HCV. Blood 02/15/2023 8:02 AM EDT 02/15/2023 12:19 PM EDT Sam Story MD LAB BLOOD ORDERABLES Final Result Performing Organization Address [facility] Co de Phone Number [address] [address] * Lipid panel (12/15/2021 8:57 AM EDT) HDL 76 35 - 100 mg/dL [facility] CHOLESTEROL 193 <200 mg/dL [facility] TRIGLYCERIDES 119 40 - 150 mg/dL [facility] LDL 93 50 - 129 mg/dL [facility] CARDIAC RISK RATIO 2.5 0.0 - 5.0 [facility] NON-HDL CHOLESTEROL 117 mg/dL [facility] Comment:NCEP ATP III guideli mely suggest a non-HDL cholesterol goal 30 mg/dl higher than the patient-specific LDL goal. Blood 12/15/2021 8:57 AM EDT 12/15/2021 1:48 PM EDT Austin Puga MD LAB BLOOD ORDERABLES Final Resul t Performing Organization Address [facility] Co de Phone Number [address] [address] from Last 3 Months or Most Recently Relevant to Health Maintenance Insurance MEDICARE PART A & B [facility] [email or web address] MEDICARE SUPPLEMENT MEDICARE PART A & B [facility] MEDICARE SUPPLEMENT [facility] MEDICARE SUPPLEMENT [facility] MEDICARE SUPPLEMENT MEDICARE PART A & B [facility] EXTENSION MEDICARE SUPPLEMENT MEDICARE PART A & B [facility] EX[facility]ENSION MEDICARE SUPPLEMENT MEDICARE PART A & B [facility] EXTENSION MEDICARE SUPPLEMENT [facility] [employer] [facility] MEDICARE SUPPLEMENT MEDICARE PART A & B [facility] EXTENSION MEDICARE SUPPLEMENT Care Teams See Wheeler Relationship Specialty Start Date End Date Karen Vergara MD [address] [place] [phone] PCP - General Internal Medicine 08/23/24 Valeria Ortiz MD [address] [place] [phone] [email or web address] Nephrology 11/10/21 Sam Story MD [address] [place] [phone] [email or web address] Nephrology 11/10/21 Austin Puga MD [address] [place] [phone] [email or web address] 11/10/21 Additional Source Comments The information contained in this document represents components of the legal health record. It is not the complete legal health record.[facility]
--- OUTSIDE RECORDS SUMMARY | 2025-01-08 11:15 | XMS_ITS | Clinical Summary ---
Author Organization [facility] Address [address] [place] [phone] Care Team Providers Care Broadcast Engineer Name Role Phone Unavailable Primary Care Provider [...]
== END 2025-01-08 11:39 | disposition home or self-care (01) ==
LOC: HO.ENCR 10:15
PROVIDERS: PCP Internal Medicine; Visit Provider Internal Medicine Endocrinology, Diabetes & Metabolism
DX: M85.80 Other specified disorders of bone density and structure, unspecified site (principal)
CPT/HCPCS: 99213

== ENCOUNTER → 2025-01-08 10:14 | Outpatient (BNVA) | payer MEDICARE, OTHER, SELFPAY | PROVIDERS: PCP Internal Medicine; Visit Provider Internal Medicine Endocrinology, Diabetes & Metabolism | DX: M85.80 Other specified disorders of bone density and structure, unspecified site (principal) | CPT/HCPCS: 99212 ==

== ENCOUNTER 2025-05-14 08:20 | Outpatient (AMB) | payer MEDICARE, OTHER, SELFPAY ==
--- NOTE | 2025-05-14 08:25 | A.OFFPC_ITS ---
Vital Signs 05/14/25 08:32 05/14/25 09:08 Height 5 ft 3 in Weight 168 lb 6 oz BMI 29.8 BP 158/80 H 124/86 Blood Pressure Location Lt brachial Position Sitting Respiration 15 Pulse 115 H Pulse Source Pulse Oximeter Temp 97.7 F Temp Source Temporal Artery Scan Pulse Oximetry (%) 98 Oxygen Delivery Method Room Air Intake Visit Reasons: cpe Intake Note: Genesis presents in the office today for her annual physical. Production Statistical Clerk Required: No Is last menstrual period known: No Post menopausal: Yes Patient : No Allergies levequin Adverse Reaction (Intermediate, Uncoded 05/14/25 08:29) Joint Pain Tobacco use date assessed: 05/14/25 Dental Screening Dental Screen Date: 05/14/25 Did you have a dental visit in the last 12 months?: Yes Did you have a dental problem in the last 6 months where you did not have access to dental care?: No Was dental information given to patient?: Patient has dentist HPI HPI Comments History of Present Illness Details The patient is a 70 year old female with a past medical history of Wegeners Granulomatosis, anxiety, osteopenia presenting for CPE CV: On lipitor zetia. Was following with Dr Wen. Cardiac testing included Echocardiogram, holter reassuring. Initial BP elevated, improved. Notes readings at home have been higher. HR also runs high. No chest pain, exertional dyspnea. Was on fosamax for osteoporosis. Improved to osteopenia. She has had some loss in bone density however from DXA in 2021 and 2023. GCA: Follows every six months Reza Ortiz. Has previously been on prednisone, rituxan. In remission. Follows with labs, symptoms. See scanned history In 2019 evaluated in hospital for ?CVA. 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 Yearly mammo UTD Due for colonoscopy 2027. Last 2017 Td 2020 ROS CONSTITUTIONAL: Denies weight loss, fever and chills. HEENT: Denies changes in vision and hearing. RESPIRATORY: Denies SOB and cough. CV: Denies palpitations and CP GI: Denies abdominal pain, nausea, vomiting and diarrhea. : Denies dysuria and urinary frequency. MSK: Denies new myalgia and joint pain. SKIN: Denies rash and pruritus. NEUROLOGICAL: Denies headache PSYCHIATRIC: Denies recent changes in mood. PHYSICAL EXAM: GENERAL: Alert and oriented x 3. NAD EYES: EOMI. Anicteric. HENT: Moist mucous membranes. Thyroid full, right upper nodule LUNGS: Clear to auscultation bilaterally. CARDIOVASCULAR: Regular rate and rhythm. No murmur. No JVD. ABDOMEN: Soft, non-tender +bs EXTREMITIES: No edema. Non-tender. SKIN: No rashes or lesions. Warm. NEUROLOGIC: No focal neurological deficits. CN II-XII grossly intact PSYCHIATRIC: Cooperative. Appropriate mood and affect [facility] Medical History Sinusitis High cholesterol Orbital granulomatosis with polyangiitis (GPA) Osteopenia Anxiety Surgical History H/O hand surgery H/O section Family History Father High blood cholesterol Cardiovascular disease Mother Breast cancer Paternal Grandmother Brain cancer Social History (Updated 05/14/25 @ 08:31 by Audelia Rea TITLE CLERK AUTOMOBILE) Housing: House Alcohol intake: current Patient Tobacco Use Status: Former Tobacco user Cigarette Packs Per Day: 1 Cigarettes Per Day: 20 Years Smoked: 10 e-Cigarette/Vaping Use: Never Used Second Hand Smoke Exposure: Yes service: No Current occupational status: retired Current occupational exposures/hazards: No Cognitive needs: No Hearing needs: No Vision needs: Yes Questionnaire PHQ-9 Over the last 2 weeks, how often have you been bothered by any of the following problems? 1. Little interest or pleasure in doing things: not at all 2. Feeling down, depressed, or hopeless: several days 3. Trouble falling or staying asleep, or sleeping too much: not at all 4. Feeling tired or having little energy: several days 5. Poor appetite or overeating: several days 6. Feeling bad about yourself - or that you are a failure or have let yourself or your family down: not at all 7. Trouble concentrating on things, such as reading the newspaper or watching television: not at all 8. Moving or speaking so slowly that other people could have noticed. Or the opposite - being so fidgety or restless that you have been moving around a lot more than usual: not at all 9. Thoughts that you would be better off or of hurting yourself in some way: not at all Total score: 3 Depression Screening Interpretation: Negative Depression Screening Done: Yes 80020 - PHQ-9 Billing: Yes Source: Developed by Drs. Shadi Taylor, Chase Epps and colleagues, with an educational raudel from [employer]. Thrive Questionnaire Date Thrive assessed: 06/26/24 I am a: Patient What is your living situation today?: I have a steady place to live Within the past 12 months, did the food you bought not last and you didn't have the money to get more?: Never true Within the past 12 months, did you worry whether your food would run out before you got money to buy more?: Never true Do you have trouble paying for medicines?: No Do you have trouble getting transportation to medical appointments?: No Do you have trouble paying your heating and electricity bill?: No Do you have trouble taking care of your child, family member or friend?: No Do you have trouble with day-to-day activities such as bathing, preparing meals, shopping, managing finances, etc.?: No Are you currently unemployed and looking for a job?: No Are you interested in more education?: No Please select the resources that you would like help with: None Currently or been in a relationship where the following occur: No concerns reported THRIVE Score: 0 MYRON-7 AMB Questionnaire MYRON-7 Date MYRON - 7 assessed: 08/06/24 Feeling nervous, anxious, or on edge: 1 = Several days Not being able to stop or control worryin = Several days Worrying too much about different things: 1 = Several days Trouble relaxin = Not at all Being so restless that it is hard to sit still: 0 = Not at all Becoming easily annoyed or irritable: 0 = Not at all Feeling afraid as if something awful might happen: 0 = Not at all Total MYRON-7 score (0-4 normal; 5-9 mild; 10-14 moderate; 15-21 severe): 3 Source: Developed by Eleanor Garcia Kurt Kroenke and colleagues, with an educational raudel from [employer]. MYRON-7 Assessment Billing MYRON-7 Assessment Tool: MYRON-7 Assessment 08935 Physical exam (Primary Care) Vital Signs: Last Vital Signs Temp 97.7 F 05/14/25 08:32 Pulse 115 H 05/14/25 08:32 Resp 15 05/14/25 08:32 BP 124/86 05/14/25 09:08 Pulse Ox 98 05/14/25 08:32 Oxygen Delivery Method Room Air 05/14/25 08:32 BMI result Body Mass Index 29.8 Tobacco/Smoking Status: Tobacco use Status Tobacco use date assessed 05/14/25 05/14/25 08:35 Patient Tobacco Use Status Former Tobacco user 05/14/25 08:35 e-Cigarette/Vaping Use Never Used 05/14/25 08:31 PHQ-9: PHQ-9 Score PHQ-9: Total score 3 05/14/25 09:28 Depression Screening Interpretation: Negative Thrive Assessment: Date of Thrive Assessment Date Thrive assessed 06/26/24 05/14/25 08:27 Currently or been in a relationship where the following occur: No concerns reported Coding Level of Care Code Est Pt Prev Care >65y(41623) Diagnoses Physical exam Z00.00 Primary hypertension I10 Hypertension type: primary hypertension Orbital granulomatosis with polyangiitis (GPA) M31.30 Osteoporosis, unspecified osteoporosis type, unspecified pathological fracture presence M81.0 Osteoporosis type: unspecified Presence of current pathological fracture: unspecified Additional Codes MYRON-7 Assessment Billing - MYRON-7 Assessment Tool: MYRON-7 Assessment 40709 ([id number]) PHQ-9 - 51218 - PHQ-9 Billing: Yes ([id number]) Assessment & Plan Assessment & Plan (1) Physical exam: Code(s): Z00.00 - Encounter for general adult medical examination without abnormal findings (2) Hypertension: Code(s): I10 - Essential (primary) hypertension Category: Medical Qualifiers: Hypertension type: primary hypertension Qualified Code(s): I10 - Essential (primary) hypertension (3) Orbital granulomatosis with polyangiitis (GPA): Code(s): M31.30 - Cely's granulomatosis without renal involvement Category: Medical (4) Osteoporosis: Code(s): M81.0 - Age-related osteoporosis without current pathological fracture Category: Medical Qualifiers: Osteoporosis type: unspecified Presence of current pathological fracture: unspecified Qualified Code(s): M81.0 - Age-related osteoporosis w ithout current pathological fracture Plan 70 year old for physical exam Interval history reviewed Preventive measures for age discussed HTN-encouraged her to start metoprolol as suggested by cardiology Labs ordered Follow up cardiology, immunology Orders: Orders Complete Blood Count Auto Diff 05/14/25 E78.00 - Pure hypercholesterolemia, unspecified, F41.9 - Anxiety disorder, unspecified, M31.30 - Cely's granulomatosis without renal involvement, M81.0 - Age-related osteoporosis without current pathological fracture, Z13.0 - Encounter for screening for diseases of the blood and blood-forming organs and certain disorders involving the immune mechanism Comprehensive Met. Panel 05/14/25 E78.00 - Pure hypercholesterolemia, unspecified, F41.9 - Anxiety disorder, unspecified, M31.30 - Cely's granulomatosis without renal involvement, M81.0 - Age-related osteoporosis without current pathological fracture, Z13.0 - Encounter for screening for diseases of the blood and blood-forming organs and certain disorders involving the immune mechanism Lipid Panel 05/14/25 E78.00 - Pure hypercholesterolemia, unspecified, F41.9 - Anxiety disorder, unspecified, M31.30 - Cely's granulomatosis without renal involvement, M81.0 - Age-related osteoporosis without current pathological fracture, Z13.0 - Encounter for screening for diseases of the blood and blood- forming organs and certain disorders involving the immune mechanism TSH reflex Free T4 05/14/25 E78.00 - Pure hypercholesterolemia, unspecified, F41.9 - Anxiety disorder, unspecified, M31.30 - Cely's granulomatosis without renal involvement, M81.0 - Age-related osteoporosis without current pathological fracture, Z13.0 - Encounter for screening for diseases of the blood and blood- forming organs and certain disorders involving the immune mechanism Medications: New metoprolol succinate ER 25 mg PO DAILY 90 tabs 3RF
[2025-05-14 08:32] VITALS: BP 158/80; PULSE 115; RESP 15; TEMP 36.5; O2SAT 98; BMI 29.8
--- OUTSIDE RECORDS SUMMARY | 2025-05-14 08:39 | XMS_ITS | Clinical Summary ---
Author Organization [facility] Address [address] [place] [address] Care Team Providers Care Kinesiotherapist Name Role Phone Unavailable Primary Care Provider Unavailabl e Social History Tobacco Use Types Packs/Day Years Used Date Smoking Tobacco: Never Assessed Comments Unknown Sex and Gender Information Value Date Recorded Sex Assigned at Not on file Legal Sex Female 1:16 PM EDT Gender Identity Not on file Sexual Orientation Not on file Plan of Treatment Health Maintenance Due Date Last Done Comments Advance Care Planning 1955 Hepatitis C Virus Screening 1955 DTaP/Tdap/Td Vaccines (1 - Tdap) 01/29/1976 Pneumococcal Vaccines 50+ (1 of 1 - PCV) 2007 Zoster (Shingles) Vaccine (1 of 2) 2007 COVID-19 Vaccine ( - 2024-2 6 season) 2025 RSV Vaccine 50 years and old er and Patients (1 - 1-dose 75+ series) 01/29/2032 Hepatitis B Vaccines Aged Out No long er eligible based on patient's age to complete this topic
--- OUTSIDE RECORDS SUMMARY | 2025-05-14 08:39 | XMS_ITS | Clinical Summary ---
Author Organization [facility] Address [address] [place] [phone] Care Team Providers Care Energy Conservation Technician Name Role Phone Unavailable Primary Care Provider [...] Series) 2007 Osteoporosis screening (bone density) 2022 Influenza vaccine 12/28/2024 Covid-19 vaccine series ( - 2024- season) 2025 RSV Immunization (1 - 1-dose 75+ series) 01/29/2032 Cervical cancer screening Discontinued Meningococcal B Vaccine Aged Out No l onger eligible based on patient's age to complete this topic Meningococcal Vaccine Aged Out No tc julian eligible based on patient's age to complete this topic
--- OUTSIDE RECORDS SUMMARY | 2025-05-14 08:39 | XMS_ITS | Encounter Summary ---
Author Organization [facility] Address [facility] [address] [place] [phone] Phone Care Team Providers Care Technical Applications Specialist Name Role Phone Kathy Ward MD Primary Care Provider Unava ilable Kathy Ward MD Primary Care Provider Unava ilable Pranav Bryant DO Primary Care Provider Reza Ortiz MD Unavailable Sam Story MD Unavailable Austin Puga MD Unavailable [email or web address] Karen Vergara MD Primary Care Provider Reason for Visit * Reason Comments Other Encounter Details Date Type Department Care Team (Late st Contact Info) Description 12/13/2015 Refill [facility] [address] [place] [phone] Umm Horta MD, PhD [address] [place] [phone] [email or web address] Other Social History Tobacco Use Types Packs/Day Years Used Date Smoking Tobacco: Former Smokeless Tobacco: Never Alcohol Use Standard Drinks/Week Comments Not Asked 0 (1 standard drink = 0.6 oz pur e alcohol) Comments No Sex and Gender Information Value Date Recorded Sex Assigned at Female 05/11/2022 3:20 PM EST Legal Sex Female 7:57 PM EST Gender Identity Female 05/11/2022 3:20 PM EST Sexual Orientation Straight 05/11/2022 3: 20 PM EST documented as of this encounter Plan of Treatment Upcoming Encounters Date Type Department Care Team (Late st Contact Info) Description 12/09/2025 10:30 AM EDT Office Visit [facility] [address] [place] [phone] Arthur Kan MD [address] [place] [address] [id number] [place] [address] [email or web address] documented as of this encounter Visit Diagnoses Not on filedocumented in this encounter Additional Health Concerns Infection Onset Date Last Indicated Resolved Time COVID-19 04/20/2024 04/20/2024 05/11/2024 1:23 AM EST documented as of this encounter Care Teams Technical Applications Specialist Relationship Specialty Start Date End Date Kathy Ward MD PCP - General 11/27/13 07/06/16 Kathy Ward MD PCP - General Internal Medicine 07/07/16 10/06/21 Pranav Bryant DO [address] [place] [phone] PCP - General Family Medicine 10/07/21 08/22/24 Karen Vergara MD [address] [place] [phone] PCP - General Internal Medicine 08/23/24 Reza Ortiz MD [address] [place] [address] [id number] [place] [address] [email or web address] 11/10/21 Sam Story MD [address] [place] [phone] [email or web address] 11/10/21 Austin Puga MD [address] [place] [phone] [email or web address] Nephrology 11/10/21 documented as of this encounter Additional Source Comments The information contained in this document represents components of the legal health record. It is not the complete legal health record.[facility]
--- OUTSIDE RECORDS SUMMARY | 2025-05-14 08:39 | XMS_ITS | Clinical Summary ---
Author Organization [facility] Address [facility] [address] [place] [phone] Phone Care Team Providers Care Assessment Coordinator Name Role Phone Valeria Ortiz MD Unavailable Sam Story MD Unavailable [phone] Austin Puga MD Unavailable [email or web address] Karen Vergara MD Primary Care Provider Allergies [...] Encounters Date Type Department Care Team Description 04/15/2025 10:30 AM EST Office Visit [facility] [address] 1[address] [place] [address] Sam Story MD 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); 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; Granulomatosis with polyangiitis 02/28/2025 Orders Only [facility] Administrative [address] [place] [address] Esteban Leyva MD, PhD from Last 3 Months Immunizations Immunization Administration [...] Sign Reading Time Taken Comments Blood Pressure 137/84 04/15/2025 9:51 AM EST Pulse 84 04/15/2025 9:51 AM EST Temperature 36.2 C (97.2 F) 04/15/2025 9:51 AM EST Respiratory Rate 18 10/16/2019 7:00 AM EDT Oxygen Saturation 98% 04/15/2025 9:51 AM EST Inhaled Oxygen Concentration - - Weight 75.3 kg (166 lb) 04/15/2025 9:51 AM EST Height 160 cm (5' 3 ) 04/15/2025 9:51 AM EST Body Mass Index 29.41 04/15/2025 9:51 AM EST Plan of Treatment Upcoming Encounters Date Type Department Care Team (Late st Contact Info) Description 12/09/2025 10:30 AM EDT Office Visit [facility] [address] 1[address] [place] [address] Arthur Kan MD [address] [place] [address] [id number] [place] [address] [email or web address] Health Maintenance Due Date Last Done Comments DEPRESSION SCREENING 1969 SMOKING Hx and SMOKELESS TOBACCO SCREENING 1970 MAMMOGRAM 1997 COLOGUARD 2002 COLONOSCOPY 2002 COLORECTAL CANCER SCREENING 2002 FIT TEST 2002 FOBT 2002 SIGMOIDOSCOPY 2002 VIRTUAL COLONOSCOPY 2002 OSTEOPOROSIS SCREENING INITIAL (ONE-TIME) 2022 COVID-19 VACCINE ( season) 2025 10/30/2024, 02/22/2024, 02/22/2024, Additional history exists SCREENING FOR DIABETES 08/24/2027 08/23/2024 LIPID PANEL 05/19/2028 05/19/2023, 11/27, 10/07/2020, Additional history exists Adult Td,Tdap Booster 01/17/2030 01/18/2020 , 03/20/2010, 11/18/2004 ZOSTER VACCINES Completed 06/05/2019, 02/28/2019 PNEUMOCOCCAL VACCINES (50+ years) Completed 12/29/2022, 06/30/2015, 09/21/2008 RSV VACCINE Completed 01/25/2023 HEPATITIS C SCREENING Completed 02/15/2023 , 02/15/2023, 02/15/2023, Additional history exists INFLUENZA VACCINE Completed 03/18/2025, , 02/23/2022, Additional history exists HEPATITIS A VACCINES Aged Out No long [...] Procedure Name Priority Date/Time Associated Diagnosis Comments CBC Routine 04/16/2025 7:17 AM EST 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 Granulomatosis with polyangiitis POCT URINE DIPSTICK AUTOMATED Routine 04/15/2025 3:01 PM EST 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 Granulomatosis with polyangiitis MICROALBUMIN/CREATININE RATIO, RANDOM URINE Routine 04/15/2025 10:35 AM EST 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 Granulomatosis with polyangiitis TOTAL PROTEIN CREATININE RATIO, RANDOM URINE Routine 04/15/2025 10:35 AM EST 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 Granulomatosis with polyangiitis IMMUNOGLOBULINS IGG, IGA, IGM Routine 04/15/2025 10:35 AM EST 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 Granulomatosis with polyangiitis ANTI-NEUTROPHIL CYTOPLASMIC ANTIBODY (ANCA) Routine 04/15/2025 10:35 AM EST 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 Granulomatosis with polyangiitis SEDIMENTATION RATE (ESR) Routine 04/15/2025 10:35 AM EST 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 Granulomatosis with polyangiitis C-REACTIVE PROTEIN (CRP) Routine 04/15/2025 10:35 AM EST 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 Granulomatosis with polyangiitis COMPREHENSIVE METABOLIC PANEL (CMP) Routine 04/15/2025 10:35 AM EST 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 Granulomatosis with polyangiitis HEPATITIS C ANTIBODY, QUALITATIVE Routine 02/15/2023 8:02 AM EDT Granulomatosis with polyangiitis LIPID PANEL Routine 12/15/2021 8:57 AM EDT Granulomatosis with polyangiitis from Last 3 Months or Most Recently Relevant to Health Maintenance Results * CBC (04/16/2025 7:17 AM EST) WBC MGV VGC RE NAL ASSOC LY MGV VGC RE NAL ASSOC MO MGV VGC RE NAL ASSOC GR MGV VGC RE NAL ASSOC LY# MGV VGC RE NAL ASSOC MO# MGV VGC RE NAL ASSOC GR# MGV VGC RE NAL ASSOC RBC MGV VGC RE NAL ASSOC Hgb MGV VGC RE NAL ASSOC MCV MGV VGC RE NAL ASSOC MCH MGV VGC RE NAL ASSOC MCHC MGV VGC RE NAL ASSOC RDW MGV VGC RE NAL ASSOC PLT MGV VGC RE NAL ASSOC MPV MGV VGC RE NAL ASSOC PCT MGV VGC RE NAL ASSOC PDW MGV VGC RE NAL ASSOC Blood (Blood) 04/16/2025 7:1 7 AM EST us Sam Story MD [facility] Final Result MGV VGC RENAL ASSOC [address] [facility], First Floor [place] [id number] * POCT Urine Dipstick, Automated (Enter/Edit) (04/15/2025 3:01 PM EST) Glucose, urine Negative Negative Bilirubin Negative Negative Ketones, urine Negative Negative Specific [place], urine 1.025 1.005 - 1.030 Blood, urine Negative Negative pH, urine 7.0 5.0 - 7.0 Protein, urine Negative Negative Urobilinogen 0.2-1 Negative Nitrite, urine Negative Negative Leukocyte Esterase, urine Negative Negative 04/15/2025 3:01 PM EST Result Jasen Story MD LAB POCT ENTER/EDIT ORDERAB LES Final Result * Protein/Creatinine Ratio, Random Urine, Total (04/15/2025 10:35 AM EST) Pathologist [facility] Total Protein/Creatinin e Ratio, Urine 0.06 <0.15 04/15/2025 6:26 PM EST [facility] Comment:Ratios <0.2 reflect insignificant protein excretion. Total Protein, Urine 5.8 <=13.5 mg/dL 04/15/2025 6:26 PM EST [facility] Creatinine, Urine 96 mg/dL 025 6:26 PM EST [facility] Urine (Urine, Voided) Non-Blood Collection / Unknown 04/15/2025 10:35 AM EST 04/15/2025 5:02 PM EST Narrative [facility] - 04/15/2025 6:26 PM EST The reference interval(s) are unavailable for this specimen type. Comparison of this result with other laboratory results, such as the concentration in the blood, serum, or plasma, is recommended. The test result should be integrated into the clinical context for interpretation. Result Jasen Story MD LAB URINE ORDERABLES Final Result Performing Organization Address City/State/[facility] Co de Phone Number [address] [address] * (ABNORMAL) Immunoglobulins IgG, IgA, IgM (04/15/2025 10:35 AM EST) Immunoglobulin G 353(L) 700 - 1,600 mg/dL 04/15/2025 6:21 PM EST [facility] Immunoglobulin A 287 70 - 400 mg/dL 04/15/2025 6:21 PM EST [facility] Immunoglobulin M 38(L) 40 - 230 mg/dL 04/15/2025 6:21 PM EST [facility] Blood (Blood) Venipuncture / Unknown 04/15/2025 10:35 AM EST 04/15/2025 5:01 PM EST us Sam Story MD LAB BLOOD BKR ORDERABLES Fi nal Result [address] [address] * (ABNORMAL) Comprehensive Metabolic Panel (CMP) (04/15/2025 10:35 AM EST) Sodium 137 136 - 145 mmol/L 04/15/2025 6:12 PM [facility] Potassium 4.1 3.4 - 5.1 mmol/L 04/15/2025 6:12 PM [facility] Chloride 101 98 - 107 mmol/L 04/15/2025 6:12 PM [facility] CO2 24 20 - 31 mmol/L 04/15/2025 6:12 PM [facility] Anion Gap 12 3 - 17 mmol/L 04/15/2025 6:12 PM [facility] BUN 11 6 - 23 mg/dL 04/15/2025 6:12 PM [facility] Creatinine 0.78 0.50 - 1.00 mg/dL 04/15/2025 6:12 PM [facility] eGFR 83 >59 mL/min/1. 73m2 04/15/2025 6:12 PM [facility] Comment:Estimated glomerular filtration rate calculated using the CKD-EPI refit equation. Glucose 135(H) 70 - 99 mg/dL 04/15/2025 6:12 PM [facility] Calcium 10.1 8.5 - 10.5 mg/dL 04/15/2025 6:12 PM [facility] AST 35(H) 9 - 32 U/L 04/15/2025 6:12 PM [facility] ALT 30 7 - 33 U/L 04/15/2025 6:12 PM [facility] Alkaline Phosphatase 84 40 - 130 U/L 04/15/2025 6:12 PM [facility] Bilirubin, Total 0.6 0.0 - 1.2 mg/dL 04/15/2025 6:12 PM [facility] Total Protein 6.4 6.4 - 8.3 g/dL 04/15/2025 6:12 PM [facility] Albumin 4.3 3.5 - 5.2 g/dL 04/15/2025 6:12 PM EST [facility] Globulin 2.1 1.9 - 4.1 g/dL 04/15/2025 6:12 PM [facility] Blood (Blood) Venipuncture / Unknown 04/15/2025 10:35 AM EST 04/15/2025 5:01 PM EST Sam Story MD LAB BLOOD BKR ORDERABLES Fi nal Result [address] [address] * Microalbumin/Creatinine Ratio, Random Urine (04/15/2025 10:35 AM EST) Creatinine, Urine 96 mg/dL 04/15/2025 6:50 PM EST [facility] Microalbumin, Urine <1.2 <2.0 mg/dL 04/15/2025 6:50 PM EST [facility] [place] 04/15/2025 6:50 PM [facility] Comment:Unable to calculate. Urine (Urine, Voided) Non-Blood Collection / Unknown 04/15/2025 10:35 AM EST 04/15/2025 5:02 PM EST Narrative [facility] - 04/15/2025 6:50 PM EST The reference interval(s) are unavailable for this specimen type. Comparison of this result with other laboratory results, such as the concentration in the blood, serum, or plasma, is recommended. The test result should be integrated into the clinical context for interpretation. Sam Story MD LAB URINE ORDERABLES Final Result Performing Organization Address City/[facility] [address]/ZIP Co de Phone Number [address] [address] * Anti-Neutrophil Cytoplasmic Antibody (ANCA) (04/15/2025 10:35 AM EST) Anti-MPO AB 0.0 <=2.8 U/ml 5:55 PM EST [facility] Comment: Pos > 2.8 Borderline 1.7 to 2.8 Neg < 1.7 Anti-PR3 AB 0.0 <=20.0 U/ml 5 5:55 PM [facility] Comment: Pos > 20 Borderline 10 to 20 Neg < 10 ANCA Interpretation RESULT: ANCA NEGATIVE Indirect immunofluorescence testing for anti-neutrophil cytoplasm antibodies (ANCA) is negative. OLIVIA is also negative for antibodies to proteinase 3 and myeloperoxidase. Summary of results of anti-myeloperoxida se OLIVIA: Date anti-myeloperoxida se titer in units 04/24/12 3.6 05/10/12 2.7 06/09/12 <1.0 07/31/12 <1.0 09/27/12 <1.0 11/27/12 <1.0 01/19/13 <1.0 05/11/13 <1.0 09/14/13 <1.0 01/08/14 <1.0 05/15/14 <1.0 11/19/14 <1.0 05/13/15 <1.0 11/11/15 <1.0 07/07/16 <1.0 03/23/17 <1.0 01/03/18 <1.0 11/21/18 <1.0 10/16/19 <1.0 10/07/20 <1.0 12/15/21 <1.0 02/15/23 <1.0 02/14/24 <1.0 08/23/24 <1.0 04/15/25 <1.0 A test of 2.8 units or more is considered positive. A test of 1.7 to 2.7 units is considered borderline. INTERPRETATION: The presence of antibodies to myeloperoxidase found in a previous sample(s) of this patient's serum is virtually diagnostic of granulomatosis with polyangiitis, microscopic polyangiitis, idiopathic necrotizing and crescentic glomerulonephritis , or a related form of vasculitis. The absence of ANCA now provides strong evidence against the presence of active systemic disease at this time. 5 5:55 PM [facility] Comment: . ANCA Immunofluorescence Negative 5 5:55 PM [facility] Blood (Blood) Venipuncture / Unknown 04/15/2025 10:35 AM EST 04/15/2025 5:02 PM EST [facility] - 04/16/2025 5:55 PM EST These tests were developed, and their performance characteristics determined by the Immunopathology Laboratory at the [facility]. Their characteristics have been published: Journal of the [place] Society of Nephrology 2:27-36, 1990; Human Pathology 24:170-8, 1992; Archives of Internal Medicine 156:440-5; Annals of Internal Medicine 126:866-73, 1996. These tests have not been cleared or approved by the U.S. Food and Drug Administration (FDA). The FDA has determined that clearance or approval is not necessary. Sam Story MD LAB BLOOD BKR ORDERABLES Fi nal Result Performing Organization Address [facility] [address]/[facility] Co de Phone Number [address] [address] * Erythrocyte Sedimentation Rate (ESR) (04/15/2025 10:35 AM EST) ESR 4 0 - 30 mm/h 04/15/2025 5:26 PM [facility] Blood (Blood) Venipuncture / Unknown 04/15/2025 10:35 AM EST 04/15/2025 5:02 PM EST [facility] - 04/15/2025 5:26 PM EST Specimen was processed >6 hours from time of collection. Results may be falsely decreased. Recommend repeat with fresh sample, particularly for borderline results. Sam Story MD LAB BLOOD BKR ORDERABLES Fi nal Result Performing Organization Address [facility] [address]/[facility] Co de Phone Number [address] [address] * C-Reactive Protein (CRP) (04/15/2025 10:35 AM EST) C Reactive Protein 1.5 <10.0 mg/L 04/15/2025 6:12 PM EST [facility] Comment:NOTE: This reference range is for the evaluation of inflammation. Order CRP, High Sensitivity for cardiac risk status evaluation. Blood (Blood) Venipuncture / Unknown 04/15/2025 10:35 AM EST 04/15/2025 5:01 PM EST us Sam Story MD LAB BLOOD BKR ORDERABLES Fi nal Result Performing Organization Address [facility] [address]/[facility] Co de Phone Number [address] [address] * Hepatitis C antibody, qualitative (02/15/2023 8:02 AM EDT) HCV ANTIBODY Negative Negative [facility] Comment:Antibodies to HCV no t detected. Does not exclude the possibility of exposure to HCV. Blood 02/15/2023 8:02 AM EDT 02/15/2023 12:19 PM EDT Sam Story MD LAB BLOOD BKR ORDERABLES Fi nal Result Performing Organization Address [facility] Co de Phone Number [address] [phone] * Lipid panel (12/15/2021 8:57 AM EDT) HDL 76 35 - 100 mg/dL [facility] CHOLESTEROL 193 <200 mg/dL [facility] TRIGLYCERIDES 119 40 - 150 mg/dL [facility] LDL 93 50 - 129 mg/dL [facility] CARDIAC RISK RATIO 2.5 0.0 - 5.0 [facility] NON-HDL CHOLESTEROL 117 mg/dL [facility] Comment:NCEP ATP III guideli mely suggest a non-HDL cholesterol goal 30 mg/dl higher than the patient-specific LDL goal. Blood 12/15/2021 8:57 AM EDT 12/15/2021 1:48 PM EDT us Austin Puga MD LAB BLOOD BKR ORDERABLES Final R esult Performing Organization Address [facility] [address]/[facility] Co de Phone Number [address] [phone] from Last 3 Months or Most Recently Relevant to Health Maintenance Insurance MEDICARE PART A & B [employer] MEDICARE SUPPLEMENT MEDICARE PART A & B [employer] MEDICARE SUPPLEMENT [facility] MEDICARE SUPPLEMENT [facility] MEDICARE SUPPLEMENT MEDICARE PART A & B [facility] MEDICARE SUPPLEMENT [place] [phone] MEDICARE PART A & B [facility] EXTENSION MEDICARE SUPPLEMENT MEDICARE PART A & B [facility] EXTENSION MEDICARE SUPPLEMENT [facility] MEDICARE SUPPLEMENT MEDICARE PART A & B [facility] SU[facility]LE[facility] Care Teams Assessment Coordinator Relationship Specialty Start Date End Date Karen Vergara MD [address] [place] [phone] PCP - General Internal Medicine 08/23/24 Valeria Ortiz MD [address] [place] [phone] [email or web address] Nephrology 11/10/21 Sam Story MD [address] [place] [phone] [email or web address] 11/10/21 Austin Puga MD [address] [place] [phone] [email or web address] Nephrology 11/10/21 Additional Source Comments The information contained in this document represents components of the legal health record. It is not the complete legal health record.[facility]
[2025-05-14 09:08] VITALS: BP 124/86
== END 2025-05-14 09:17 | disposition home or self-care (01) ==
LOC: HO.HMCFM 08:21
PROVIDERS: PCP Internal Medicine; Visit Provider Internal Medicine
DX: Z00.00 Encounter for general adult medical examination without abnormal findings (principal); M31.30 Wegener's granulomatosis without renal involvement; I10 Essential (primary) hypertension; M81.0 Age-related osteoporosis without current pathological fracture

== ENCOUNTER 2025-05-14 08:20 | Outpatient (REF) | payer MEDICARE, OTHER, SELFPAY ==
[2025-05-14 11:22] LABS: MANUAL DIFF FLAG NO
[2025-05-14 11:32] LABS: Hematocrit 45.6 % (37.0-47.0); Hemoglobin 15.3 g/dl (12.0-16.0); Imm Gran Abs Auto 0.02 X10*3/uL (0.00-0.03); Imm Gran Pct Auto 0.3 % (0.0-0.4); Lymphocytes Absolute Auto 1.7 X10*3/uL (1.2-4.9); Mean Corpuscular HGB Conc 33.6 g/dl (31.0-35.0); Mean Corpuscular Hemoglobin 30.0 pg (27.0-33.0); Mean Corpuscular Volume 89.4 fL (80.0-98.0); NRBC Abs Auto 0.000 X10*3/uL (0.0-0.012); NRBC Pct Auto 0.0 /100WBC (0.0-0.2); Platelet Count 247 X10*3/uL (160-400); Red Blood Count 5.10 X10*6/uL (4.20-5.50); White Blood Count 6.5 X10*3/uL (4.8-10.8)
[2025-05-14 12:09] LABS: Alanine Aminotransferase 33 U/L (0-31); Albumin Level 4.5 g/dL (3.5-5.0); Alkaline Phosphatase 76 U/L (39-117); Anion Gap 14 (12-20); Aspartate Amino Transferase 28 U/L (5-31); Blood Urea Nitrogen 16 mg/dL (9-16); Calcium 9.6 mg/dL (8.4-10.2); Carbon Dioxide 27 mmol/L (22-29); Chloride 105 mmol/L (96-108); Cholesterol 166 mg/dL (<200); Estimated Glomerular Filt Rate > 60; HDL Cholesterol 68 mg/dL (>40); Potassium 4.1 mmol/L (3.3-5.1); Sodium 142 mmol/L (135-145); Total Protein 6.5 g/dL (6.5-8.0); Triglycerides 100 mg/dL (<150)
== END 2025-05-14 08:21 | disposition home or self-care (01) ==
LOC: HO.WFDLDS 08:20
PROVIDERS: PCP Internal Medicine; Visit Provider Internal Medicine
DX: Z13.0 Encounter for screening for diseases of the blood and blood-forming organs and certain disorders involving the immune mechanism (principal); Z00.00 Encounter for general adult medical examination without abnormal findings; I10 Essential (primary) hypertension; M31.30 Wegener's granulomatosis without renal involvement; F41.9 Anxiety disorder, unspecified; M81.0 Age-related osteoporosis without current pathological fracture; E78.00 Pure hypercholesterolemia, unspecified
CPT/HCPCS: 36415; 80053; 80061; 84443; 85025; 96127; 99397